=== PATIENT | female | born 1990 | race Hispanic/Latino ===

== ENCOUNTER 2018-11-10 01:49 | Emergency (ER) | payer SELFPAY ==
[2018-11-10] MEDS ORDERED: ONDANSETRON 4 MG/2 ML VIAL ONE ×2 (02:52→05:53)
[2018-11-10 03:08] LABS: Absolute Monocytes 0.9 K/uL (0.1-1.3); Absolute Neutrophil 16.6 K/uL (1.8-8.0); Basophils % 0.2 % (0-1.3); Eosinophils % 0.5 % (0-4.4); Lymphocytes % 10.3 % (15.3-44.8); MPV 9.4 fL (7.6-11.3); Monocytes % 4.6 % (3.3-12.3); RBC Red Blood Cell Count 5.09 M/uL (3.86-4.86)
[2018-11-10 03:29] LABS: Bilirubin Direct 0.1 mg/dL (0-0.2); Bilirubin Total 0.5 mg/dL (0.2-1.0); Potassium 3.5 mmol/L (3.5-5.1); Protein, Total 8.3 g/dL (6.4-8.2)
[2018-11-10] MEDS ORDERED: NA CHLORIDE 0.9% 1,000 ML ONE (03:35)
[2018-11-10] MEDS ORDERED: MEPERIDINE HCL 50 MG/ML AMP ONE (03:35)
--- NOTE | 2018-11-10 05:00 | EDPHYS ---
Physician Documentation [facility] Name: Zoie Myers Age: 27 yrs Sex: Female : 1990 Arrival Date: 11/10/2018 Time: 01:51 Bed 20 Private MD: ED Physician Carlos Toure HPI: 11/10 02:36 This 27 yrs old Female presents to ER via Ambulatory with complaints of pkl Breathing Difficulty, numbness of foot. 02:37 The patient presents with abdominal pain in the epigastric area. Onset: The pkl symptoms/episode began/occurred just prior to arrival, 3 hour(s) ago. The symptoms do not radiate. Associated signs and symptoms: Pertinent positives: hyperventilating and numbness right arm. 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 - Social history:: Smoking status: unknown. - Ebola Screening: : No symptoms or risks identified at this time. ROS: 02:37 Eyes: Negative for injury, pain, redness, and discharge, ENT: Negative for injury, pkl pain, and discharge, Neck: Negative for injury, pain, and swelling, Cardiovascular: Negative for chest pain, palpitations, and edema, Respiratory: Negative for shortness of breath, cough, wheezing, and pleuritic chest pain. 02:37 Abdomen/GI: Positive for abdominal pain, nausea and vomiting, of the epigastric area. 02:37 Back: Negative for acute changes. 02:37 : Negative for urinary symptoms. 02:37 MS/extremity: Negative for acute changes. 02:37 Skin: Negative for rash. 02:37 Neuro: Negative for altered mental status. Exam: 02:37 Head/Face: Normocephalic, atraumatic. Eyes: Pupils equal round and reactive to light, pkl extra-ocular motions intact. Lids and lashes normal. Conjunctiva and sclera are non-icteric and not injected. Cornea within normal limits. Periorbital areas with no swelling, redness, or edema. ENT: Nares patent. No nasal discharge, no septal abnormalities noted. Tympanic membranes are normal and external auditory canals are clear. Oropharynx with no redness, swelling, or masses, exudates, or evidence of obstruction, uvula midline. Mucous membranes moist. Neck: Trachea midline, no thyromegaly or masses palpated, and no cervical lymphadenopathy. Supple, full range of motion without nuchal rigidity, or vertebral point tenderness. No Meningismus. Chest/axilla: Normal chest wall appearance and motion. Nontender with no deformity. No lesions are appreciated. Cardiovascular: Regular rate and rhythm with a normal S1 and S2. No gallops, murmurs, or rubs. Normal PMI, no JVD. No pulse deficits. Respiratory: Lungs have equal breath sounds bilaterally, clear to auscultation and percussion. No rales, rhonchi or wheezes noted. No increased work of breathing, no retractions or nasal flaring. 02:37 Abdomen/GI: Bowel sounds: normal, Palpation: soft, mild abdominal tenderness, in the epigastric area. 02:37 Back: Exam negative for acute changes. 02:37 : Exam negative for acute changes. 02:37 Musculoskeletal/extremity: Exam is negative for acute changes. 02:37 Skin: Exam negative for rash. 02:37 Neuro: Orientation: is normal, Mentation: is normal, Cranial nerves: grossly normal, Motor: is normal. Vital Signs: 02:06 BP 110 / 85; Pulse 104; Resp 18 S; Temp 98(O); Pulse Ox 98% on R/A; Weight 89.81 kg bb (R); Height 5 ft. 3 in. (160.02 cm) (R); Pain 5/10; 03:25 BP 109 / 70; Pulse 107; Resp 20; Pulse Ox 99% on R/A; Pain 5/10; ed1 04:41 BP 109 / 64; Pulse 81; Resp 16; Pulse Ox 99% on R/A; Pain 0/10; ed1 05:33 BP 102 / 75; Pulse 100; Resp 18; Pulse Ox 100% on R/A; mt 02:06 Body Mass Index 35.07 (89.81 kg, 160.02 cm) bb MDM: 01:53 Patient medically screened. pkl 04:54 Data reviewed: vital signs, nurses notes, lab test result(s), radiologic studies, CT pkl scan. ED course: Discussed lab. and CT Scan results with patients. To follow with PCP in 1 to 2 days. Advised to return if symptoms are worse. 11/10 02:35 Order name: Basic Metabolic Panel; Complete Time: 04:49 pkl 11/10 02:35 Order name: CBC with Diff; Complete Time: 04:49 pkl 11/10 02:35 Order name: Creatinine for Radiology; Complete Time: 04:49 pkl 11/10 02:35 Order name: Hepatic Function; Complete Time: 04:49 pkl 11/10 02:35 Order name: Lipase; Complete Time: 04:49 pkl 11/10 02:53 Order name: Urine Dipstick--Ancillary (enter results); Complete Time: 06:20 mw2 11/10 02:35 Order name: IV Saline Lock; Complete Time: 02:45 pkl 11/10 02:47 Order name: CT Abd/Pelvis - W/Contrast pkl 11/10 02:53 Order name: Urine --Ancillary (enter results); Complete Time: 06:20 mw2 11/10 02:35 Order name: Labs collected and sent; Complete Time: 02:45 pkl 11/10 02:45 Order name: Urine Dipstick-Ancillary (obtain specimen); Complete Time: 02:45 bb 11/10 02:45 Order name: Urine Test (obtain specimen); Complete Time: 02:45 bb Administered Medications: 02:47 Drug: Zofran 4 mg Route: IVP; Site: right antecubital; ed1 03:15 Follow up: Response: No adverse reaction; Nausea is decreased ed1 03:25 Drug: NS 0.9% 1000 ml Route: IV; Rate: 1000 ml; Site: right antecubital; ed1 03:25 Drug: Demerol 50 mg Route: IVP; Site: right antecubital; ed1 04:41 Follow up: Response: No adverse reaction; Pain is decreased ed1 05:04 Drug: Cipro 400 mg Volume: 200 ml; Route: IVPB; Infused Over: 60 mins; Site: right jb4 antecubital; 06:04 Follow up: Response: No adverse reaction; IV Status: Completed infusion; IV Intake: jb4 200ml 05:40 Drug: Zofran 4 mg Route: IVP; Site: right antecubital; jb4 05:48 Follow up: Response: No adverse reaction; Nausea is decreased jb4 Disposition: 11/10/18 04:59 Discharged to Home. Impression: Abdominal pain.. Leukocytosis. Enteritis. - Condition is Stable. - Prescriptions for Zofran 4 mg Oral Tablet - take 1 tablet by ORAL route every 12 hours As needed; 6 tablet. Cipro 500 mg Oral Tablet - take 1 tablet by ORAL route every 12 hours for 7 days; 14 tablet. - Medication Reconciliation Form, Thank You Letter, Antibiotic Education, Prescription Opioid Use form. - Work release form (11/10/18 06:18). mt - Follow up: Private Physician; When: 1 - 2 days; Reason: Re-evaluation by your physician. - Problem is new. - Symptoms have improved. Signatures: Dispatcher [employer] EDMS Carlos Toure MD MD pkl Rosa Crum, RN RN bb Melita Osei RN RN ed1 Omar Matos RN RN jb4 Rhoda Burkett in Corrections: (The following items were deleted from the chart) 06:15 04:59 11/10/2018 04:59 Discharged to Home. Impression: Abdominal pain.. Leukocytosis. jb4 Enteritis. Condition is Stable. Forms are Medication Reconciliation Form, Thank You Letter, Antibiotic Education, Prescription Opioid Use. Follow up: Private Physician; When: 1 - 2 days; Reason: Re-evaluation by your physician. Problem is new. Symptoms have improved. pkl
--- NOTE | 2018-11-10 05:00 | ER ---
Nurse's Notes [facility] Name: Zoie Myers Age: 27 yrs Sex: Female : 1990 Arrival Date: 11/10/2018 Time: 01:51 Bed 20 Private MD: Diagnosis: Abdominal pain.. Leukocytosis. Enteritis Presentation: 11/10 02:05 Presenting complaint: Patient states: she woke up with a stomach ache, vomiting, then bb she started to hyperventilate and now she has right arm numbness. Transition of care: patient was not received from another setting of care. Onset of symptoms was November 10, 2018. Risk Assessment: Do you want to hurt yourself or someone else? Patient reports no desire to harm self or others. Initial Sepsis Screen: Does the patient meet any 2 criteria? No. Patient's initial sepsis screen is negative. Does the patient have a suspected source of infection? No. Patient's initial sepsis screen is negative. Care prior to arrival: None. 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 - Social history:: Smoking status: unknown. - Ebola Screening: : No symptoms or risks identified at this time. Screenin:26 Abuse screen: Denies threats or abuse. Nutritional screening: No deficits noted. bb Tuberculosis screening: No symptoms or risk factors identified. Fall Risk None identified. Assessment: 02:27 Reassessment: pt actively vomiting Dr Toure notified. bb 02:30 General: Appears uncomfortable, Behavior is calm, cooperative. Pain: Complains of pain ed1 in abdomen Pain does not radiate. Pain currently is 5 out of 10 on a pain scale. Quality of pain is described as aching. Neuro: Level of Consciousness is awake, alert, obeys commands, Oriented to person, place, time, situation. Cardiovascular: Denies chest pain, Heart tones S1 S2 present Rhythm is regular. Respiratory: Airway is patent Respiratory effort is even, unlabored, Respiratory pattern is regular, symmetrical, Breath sounds are clear bilaterally. GI: Abdomen is non-distended, Bowel sounds present X 4 quads. Abd is soft and non tender X 4 quads. Reports nausea, vomiting, Patient currently denies diarrhea. : No signs and/or symptoms were reported regarding the genitourinary system. EENT: Oral mucosa is moist. Derm: Skin is pink, warm \T\ dry. Musculoskeletal: Circulation, motion, and sensation intact. Range of motion: intact in all extremities. 03:25 GI: Patient currently denies nausea. ed1 03:28 Reassessment: Patient appears in no apparent distress at this time. Patient and/or ed1 family updated on plan of care and expected duration. Pain level reassessed. Patient is alert, oriented x 3, equal unlabored respirations, skin warm/dry/pink. Patient states feeling better. Patient states symptoms have improved. 04:41 Reassessment: Patient appears in no apparent distress at this time. Patient and/or ed1 family updated on plan of care and expected duration. Pain level reassessed. Patient is alert, oriented x 3, equal unlabored respirations, skin warm/dry/pink. Patient states feeling better. Patient states symptoms have improved. 05:35 Reassessment: Patient appears in no apparent distress at this time. Patient and/or jb4 family updated on plan of care and expected duration. Pain level reassessed. Patient is alert, oriented x 3, equal unlabored respirations, skin warm/dry/pink. Pt reporting increased nausea, provider notified see [facility] for orders. 06:00 Reassessment: Patient appears in no apparent distress at this time. Patient and/or jb4 family updated on plan of care and expected duration. Pain level reassessed. Patient is alert, oriented x 3, equal unlabored respirations, skin warm/dry/pink. Patient states feeling better. Vital Signs: 02:06 BP 110 / 85; Pulse 104; Resp 18 S; Temp 98(O); Pulse Ox 98% on R/A; Weight 89.81 kg bb (R); Height 5 ft. 3 in. (160.02 cm) (R); Pain 5/10; 03:25 BP 109 / 70; Pulse 107; Resp 20; Pulse Ox 99% on R/A; Pain 5/10; ed1 04:41 BP 109 / 64; Pulse 81; Resp 16; Pulse Ox 99% on R/A; Pain 0/10; ed1 05:33 BP 102 / 75; Pulse 100; Resp 18; Pulse Ox 100% on R/A; mt 02:06 Body Mass Index 35.07 (89.81 kg, 160.02 cm) bb ED Course: 01:51 Patient arrived in ED. es 01:53 Carlos Toure MD is Attending Physician. pkl 02:06 Triage completed. bb 02:06 Arm band placed on Patient placed in an exam room, on a stretcher. bb 02:08 Melita Osei, RN is Primary Nurse. ed1 02:25 Urine collected: clean catch specimen. Inserted saline lock: 20 gauge in right bb antecubital area, using aseptic technique. Blood collected. 02:26 Patient has correct armband on for positive identification. Placed in gown. Bed in low bb position. Call light in reach. Side rails up X 1. Adult w/ patient. Pulse ox on. NIBP on. 02:45 Initial lab(s) drawn, by me, sent to lab. bb 03:23 Radiology exam delayed due to lab results not completed at this time. (BUN/Creatinine) kw1 test not completed at this time. 03:[address] Scan. ed1 04:16 CT Abd/Pelvis - W/Contrast In Process Unspecified. EDMS 04:42 Primary Nurse role handed off by Melita Osei, RN ed1 04:56 Omar Matos, RN is Primary Nurse. jb4 06:13 No provider procedures requiring assistance completed. IV discontinued, intact, jb4 bleeding controlled, No redness/swelling at site. Administered Medications: 02:47 Drug: Zofran 4 mg Route: IVP; Site: right antecubital; ed1 03:15 Follow up: Response: No adverse reaction; Nausea is decreased ed1 03:25 Drug: NS 0.9% 1000 ml Route: IV; Rate: 1000 ml; Site: right antecubital; ed1 03:25 Drug: Demerol 50 mg Route: IVP; Site: right antecubital; ed1 04:41 Follow up: Response: No adverse reaction; Pain is decreased ed1 05:04 Drug: Cipro 400 mg Volume: 200 ml; Route: IVPB; Infused Over: 60 mins; Site: right jb4 antecubital; 06:04 Follow up: Response: No adverse reaction; IV Status: Completed infusion; IV Intake: jb4 200ml 05:40 Drug: Zofran 4 mg Route: IVP; Site: right antecubital; jb4 05:48 Follow up: Response: No adverse reaction; Nausea is decreased jb4 Intake: 06:04 IV: 200ml; Total: 200ml. jb4 Outcome: 04:59 Discharge ordered by . alisia 06:13 Discharged to home ambulatory, with family. jb4 06:13 Condition: stable 06:13 Discharge instructions given to patient, friend, Instructed on discharge instructions, follow up and referral plans. medication usage, Demonstrated understanding of instructions, follow-up care, medications, Prescriptions given X 2. 06:15 Patient left the ED. jb4 Signatures: Dispatcher [employer] EDMS Carlos Toure MD MD pkl Salyer, Edna es Ballard, Brenda RN RN Melita Alcazar RN RN ed1 Omar Matos RN RN jb4 Thompson, Moriah mt Wilhelm, Kimberly kw1 Corrections: (The following items were deleted from the chart) 03:28 03:25 GI: Patient currently denies nausea, ed1 ed1
[2018-11-10 05:12] LABS: Urine Blood NEGATIVE (NEG); Urine Glucose NEGATIVE (NEG); Urine Protein 1+ (NEG)
[2018-11-10] MEDS ORDERED: CIPROFLOXACIN 400mg IV 400 MG/200 ML BAG IV ONE (05:15)
[2018-11-10 06:25] VITALS: TEMP 98
[2018-11-10 06:30] VITALS: BP 102/75; O2SAT 100
--- NOTE | 2018-11-10 10:36 | RAD REPORT ---
EXAM DESCRIPTION: CT ABDOMEN AND PELVIS WITH CONTRAST CLINICAL HISTORY: Abdominal pain. COMPARISON: None. TECHNIQUE: Axial [address] imaging of the abdomen and pelvis performed utilizing intravenous contrast. Reformatted coronal and sagittal images reviewed. A dose reduction technique was utilized with automated exposure control according to patient size. FINDINGS: LOWER THORAX: Clear lung bases. Heart is normal in size. ABDOMEN: LIVER/GALLBLADDER: Unremarkable liver. Normal gallbladder. SPLEEN/PANCREAS: Normal spleen and pancreas. KIDNEYS/ADRENAL GLANDS: Normal adrenal glands and kidneys. RETROPERITONEAL VESSELS/NODES: Normal aorta and inferior vena cava caliber. No adenopathy. Mesenteri c vessels are normal. BOWEL: Normal stomach and small bowel loops. Normal right lower quadrant appendix. Fluid noted throu ghout the colon. MESENTERY/PERITONEUM: Nonenlarged mesenteric lymph nodes. No ascites or free air. PELVIS: BLADDER: Normal bladder. GENITAL ORGANS: Uterus is retroverted. Uterus is otherwise normal. Normal follicular changes within the ovaries. PERITONEUM: No free fluid or adenopathy. BONES AND SOFT TISSUES: Normal lumbar lordosis. Superior endplate Schmorl's node at L3. Intact bony pelvis. Normal hips. IMPRESSION: 1. Diffuse colonic fluid compatible with enteritis. Electronically signed by: Kinsey De Dios DO 11/10/2018 4:41 AM CDT Due to temporary technical issues with the PACS/Fluency reporting system, reports are being signed by the in house radiologist as a courtesy to ensure prompt reporting. The interpreting radiologist is f ully responsible for the content of the report.
== END 2018-11-10 06:15 | disposition home or self-care (01) ==
LOC: ER 01:49
DX: K52.9 Noninfective gastroenteritis and colitis, unspecified (principal); D72.829 Elevated white blood cell count, unspecified
CPT/HCPCS: 36415; 74177; 80048; 80076; 81003; 81025; 83690; 85025; 96365; 96375; 99284; J0744; J2175; J2405; J7030; Q9967

== ENCOUNTER 2019-10-06 11:33 | Emergency (ER) | payer SELFPAY, OTHER ==
--- OUTSIDE RECORDS SUMMARY | 2019-10-06 12:02 | XMS REPORT | Summary of Care ---
:1990 Author Organization [facility] Address [address] [place] [id number] Care Team Providers Name Role Phone Angella Lyman [facility] Primary Care Provider Reason for Visit Reason Comments Well Woman Exam CONTROL Encounter Details Date Type Department Care Team Description [facility] Wel l woman exam (Primary Dx); [facility] Encounter for general counseling and adv ice on contraceptive management; [address] BMI 36.0-36.9,adult; [place], [place] Screen for STD (sexually transmitted dis ease); [id number] [place] [address] History of gonorrhea [phone] Allergies No Known Allergiesdocumented as of this encounter (statuses as of 01/14/2019) Medications Medication Sig Dispensed Refills Start Date End Date Status Take 1 tablet 90 tablet 3 01/16/2016 01/14/2019 Disc ontinued multivitamin by mouth ( VITAMIN) daily. tabletIndications: High risk , antepartum HYDROcodone-acetami Take 1 tablet 30 tablet 0 08/24/201601/14 Discontinued nophen (NORCO) by mouth 10-325 mg tablet every 6 (six) hours as needed for Pain (scale 1-3), Pain (scale 4-6) or Pain (scale 7-10). naproxen 500 mg Take 1 tablet 60 tablet 1 08/24/2016 9 Discontinued tablet by mouth 2 (two) times daily with meals. documented as of this encounter (statuses as of 01/14/2019) Active Problems Problem Noted Date Gonococcal infection (acute) of lower genitourinary tr act 05/29/2018 BMI 35.0-35.9,adult 02/06/2018 Fibrocystic breast changes, bilateral 02/06/2018 documented as of this encounter (statuses as of 01/14/2019) Resolved Problems Problem Noted Date Resolved Date Status post primary low transverse section 08/27/19 17 02/06/2018 Liveborn by 08/24/2016 02/06/2018 Obesity affecting 08/24/2016 02/06/2018 Failed induction of labor, delivered 08/24/2016 Nuchal cord, delivered, current hospitalization 08/24/2016 02/06/2018 39 weeks gestation of 08/23/2016 02/07/20 18 Low-lying placenta in second trimester 04/10/2016 0 02/06/2018 Rubella non-immune status, antepartum 02/15/2016 High risk , antepartum 01/16/2016 02/07/20 18 Obesity complicating in first trimester 01/16/2016 02/06/2018 Heartburn during in first trimester 01/16/2016 02/06/2018 BCP ( control pills) initiation 07/20/201501/2016 Encounter for routine gynecological examination 09/29/2013 07/20/2015 Overview: ICD10 Diagnosis Term [employer] General counseling and advice for contraceptive management 0 09/29/2013 07/20/2015 Overview: ICD10 Diagnosis Term [employer] Obesity 08/21/2012 01/16/2016 Overview: ICD10 Diagnosis Term [employer] STD (female) 08/21/2012 09/29/2013 Overview: History of chlamydia Other inflammatory disease of cervix, vagina and vulva 07/3108/21/2012 Overview: Mass to mabia minora documented as of this encounter (statuses as of 01/14/2019) Immunizations Name Administration Dates Next Due Influenza Virus Vaccine Quad IM 3+ YRS 03/13/2016 MMR 08/25/2016 Td 2005 Tdap 07/09/2016 documented as of this encounter Social History Tobacco Use Types Packs/Day Years Used Date Never Smoker Smokeless Tobacco: Never Used Alcohol Use Drinks/Week oz/Week Comments Yes 0 Standard drinks or equivalent 0.0 socially- every other weekend Sex Assigned at Date Recorded Not on file Job Start Date Occupation Industry Not on file Not on file Not on file Travel History Travel Start Travel End No recent travel history available. documented as of this encounter Last Filed Vital Signs Vital Sign Reading Time Taken Comments Blood Pressure 127/89 01/14/2019 1:21 PM CDT Pulse 107 01/14/2019 1:21 PM CDT Temperature 36.8 C (98.2 F) 01/14/2019 1:21 PM CDT Respiratory Rate 16 01/14/2019 1:21 PM CDT Oxygen Saturation - - Inhaled Oxygen Concentration - - Weight 93.5 kg (206 lb 2 oz) 01/14/2019 1:21 PM CDT Height 160 cm (5' 3") 01/14/2019 1:21 PM CDT Body Mass Index 36.51 01/14/2019 1:21 PM CDT documented in this encounter Patient Instructions Patient InstructionsAngella Lyman, DEBRA - 01/14/2019 1:15 PM CDT Control Methods control methods are used to help prevent .There are many different methods to choose from. Talk to your healthcare provider about which method is right for you.Be sure to ask your provider about the effectiveness of each method. Also ask about the benefits, risks, and side effects of each method. Hormones Some control methods work by releasing hormones such as progestin and estrogen. These methods include hormone implants, hormone shots, the vaginal ring, the patch,and control pills. They all work by stopping ovulation (release of the egg from the ovary). The implant is a small device that needs to be placed in the upper arm by a trained healthcare provider. It works for up to3 years.Hormone injections must be repeated every 3 months.The vaginal ring must be replaced monthly (it can be removed during the fourth week of each cycle). The patch must be replaced weekly (it is not worn during the fourth week of each cycle). control pills must be taken every day. All of these met hods are effective and can be stopped at any time. Intrauterine device (IUD) An IUD is a small, T-shaped device. It must be placed in the uterus by a trained healthcare provider.There are different types of IUDs available. They work by causing changes in the uterus that make it harder for sperm to reach the egg. Depending on the type of IUD you have, it may work for several years or longer. The IUD is a reversible control method. This means it can be removed at any time. Condom A condom is a sheath that forms a thin barrier between the penis and the vagina.It helps prevent by keeping sperm from entering the vagina. When latex condoms are used, they have the added benefit of protecting against most STIs (sexually transmitted infections).Condoms are used each time there is sexual intercourse and should be discarded after each use. Ask your healthcare provider about the different types of condoms available. These include both the male condom and female condom. Spermicide Spermicides come as foams, jellies, creams, suppositories, andtablets.They help prevent by killing sperm. When used alone they are not that reliable. They work best when combined with other control methods such as diaphragms and cervical caps. Sponge, diaphragm, and cervical cap All of these methods help prevent by covering the opening of the uterus (cervix). This prevents sperm from passing through. The sponge contains spermicide. It can be bought over the counter. The sponge must be left in place for at least 6 hours after the last time you have sex.However, it should not stay in place for morethan 24 hours. It should be discarded after it is used. Thediaphragmand cervical cap must be fitted and prescribed by your healthcare provider. Both areused with spermicide.The diaphragm must be left in place for at least 6 hours after sex. However, it should not stay in place for more than 24 hours.It can be washed and reused. The cervical cap must be left in place for at least 6 hours after sex. However, it should not stay in place for more than 48 hours. It can be washed and reused. Withdrawal method This is when the man pulls his penis out of the vagina just before ejaculation (coming). This lowers the amount of sperm entering the vagina. Be aware that fluids released just before ejaculationoften still contain some sperm, so this method is not as reliable as certain other methods. Rhythm method This method requires that you know when in your menstrual cycle you are likely to become . Then, you avoid sex during those days. This requires careful planning and good discipline. Your healthcare provider can explain more about how this works. Tubal ligation and vasectomy These are surgical methods to prevent . Tubal ligation is an option for women. The fallopian tubes are blocked or cut (ligated). This keeps the egg from passing into the uterus or sperm from reaching the egg. Vasectomy is an option for men. The tubes that normally carry sperm to the penis areeither closed or blocked. Both tubal ligation and vasectomy are permanent control methods. This means reversal is either not possible or unlikely to work.They are good choices for women and menwho know that they do not want to have children in the future. Date Last Reviewed: 04/10/201719994342-7317 [employer]. [address] [place] [address]. All rights reserved. This information is not intended as a substitute for professional medical care. Always follow your healthcare professional's instructions. Control: The Pill control pills contain hormones that help prevent . The pills are prescribed by your healthcare provider. There are many types of control pills available. If you have side effects from one type of pill, tell your healthcare provider. He or she may be able to prescribe a pill that works better for you. rates Talk to your healthcare provider about the effectiveness of this control method. Using the pill Take one pill daily. Take it at around the same time each day. Follow your healthcare providers guidelines on when to start your first pack of pills. You mayneed to use another form of control for a week or more after you start. Know what to do if you forget to take a pill. (Consult your healthcare provider or check the package.) If you miss more than one pill, you may need to use a backup method of control for a weekor more. Pros Low rate No interruption to sex Easy to use Can help make periods more regular May lower your risk of ovarian cysts and certain cancers May decrease menstrual cramps, menstrual flow, and acne Cons Does not protect against sexually transmittedinfection (STIs) Requires taking a pill on time each day May not work as well when taken with certain other medicines (check with your pharmacist) May cause side effects such as nausea, irregular bleeding, headaches, breast tenderness, fatigue,or mood changes (these often go away within 3 months) May increase the risk of blood clots,heart attack, and stroke The pill may not be for you The pill may not be for you if: You are a smoker and over age 35 You havehigh blood pressureor gallbladder, liver, cerebrovascular or heart disease You have diabetes, migraines, blood clot in the vein or artery, lupus, depression, certain lipid disorders, or take medicines that interfere with the pill In these cases, discuss the risks with your healthcare provider. Date Last Reviewed: 08/08/201619994577-2462 [employer]. [address] [place] [address]. All rights reserved. This information is not intended as a substitute for professional medical care. Always follow your healthcare professional's instructions. Medroxyprogesterone injection [Contraceptive] Brand Names: Depo-Provera, Depo-subQ Provera 104 What is this medicine? MEDROXYPROGESTERONE (me DROX ee proe SUNITHA te jessie) contraceptive injections prevent . They provide effective control for 3 months. Depo-subQ Provera 104 is also used for treating pain related to endometriosis. How should I use this medicine? Depo-Provera Contraceptive injection is given into a muscle. Depo-subQ Provera 104 injection is given under the skin. These injections are given by a health managed care coordinator. You must not be before getting an injection. The injection is usually given during the first 5 days after the start of a menstrual period or 6 weeks after delivery of a baby. Talk to your smalltalk developer regarding the use of this medicine in children. Special care may be needed. These injections have been used in female children who have started having menstrual periods. What side effects may I notice from receiving this medicine? Side effects that you should report to your doctor or health managed care coordinator as soon as possible: allergic reactions like skin rash, itching or hives, swelling of the face, lips, or tongue breast tenderness or discharge breathing problems changes in vision depression feeling faint or lightheaded, falls fever pain in the abdomen, chest, groin, or leg problems with balance, talking, walking unusually weak or tired yellowing of the eyes or skin Side effects that usually do not require medical attention (report to your doctor or health managed care coordinator if they continue or are bothersome): acne fluid retention and swelling headache irregular periods, spotting, or absent periods temporary pain, itching, or skin reaction at site where injected weight gain What may interact with this medicine? Do not take this medicine with any of the following medications: bosentan This medicine may also interact with the following medications: aminoglutethimide antibiotics or medicines for infections, especially rifampin, rifabutin, rifapentine, and griseofulvin aprepitant barbiturate medicines such as phenobarbital or primidone bexarotene carbamazepine medicines for seizures like ethotoin, felbamate, oxcarbazepine, phenytoin, topiramate modafinil [place]'s wort What if I miss a dose? Try not to miss a dose. You must get an injection once every 3 months to maintain control. If you cannot keep an appointment, call and reschedule it. If you wait longer than 13 weeks between Depo-Provera contraceptive injections or longer than 14 weeks between Depo-subQ Provera 104 injections, you could get . Use another method for control if you miss your appointment. You may also need a test before receiving another injection. Where should I keep my medicine? This does not apply. The injection will be given to you by a health managed care coordinator. What should I tell my health care provider before I take this medicine? They need to know if you have any of these conditions: frequently drink alcohol asthma blood vessel disease or a history of a blood clot in the lungs or legs bone disease such as osteoporosis breast cancer diabetes eating disorder (anorexia nervosa or bulimia) high blood pressure HIV infection or AIDS kidney disease liver disease mental depression migraine seizures (convulsions) stroke tobacco smoker vaginal bleeding an unusual or allergic reaction to medroxyprogesterone, other hormones, medicines, foods, dyes, or preservatives or trying to get breast-feeding What should I watch for while using this medicine? This drug does not protect you against HIV infection (AIDS) or other sexually transmitted diseases. Use of this product may cause you to lose calcium from your bones. Loss of calcium may cause weak bones (osteoporosis). Only use this product for more than 2 years if other forms of control are not right for you. The longer you use this product for control the more likely you will be at risk for weak bones. Ask your health managed care coordinator how you can keep strong bones. You may have a change in bleeding pattern or irregular periods. Many females stop having periods while taking this drug. If you have received your injections on time, your chance of being is very low. If you think you may be , see your health managed care coordinator as soon as possible. Tell your health managed care coordinator if you want to get within the next year. The effect of this medicine may last a long time after you get your last injection. NOTE:This sheet is a summary. It may not cover all possible information. If you have questions aboutthis medicine, talk to your doctor, pharmacist, or health care provider. Copyright 2018 [employer] Understanding STDs When it comes to sex, nothing is risk-free. Any sexual contact with the penis, vagina, anus, or mouth can spread a sexually transmitted disease (STD). The only sure way to prevent STDs is abstinence (not having sex). But there are ways to make sex safer. Use a latex condom each time you have sex. And choose your partner wisely. Use condoms for safer sex If you have sex, latex condoms provide the best protection against STDs. Latex condoms stop the exchange of body fluids that carry certain STDs. They also limit contact with affected skin. Be aware though, a condom doesnt cover all skin. So, affected skin that is not covered can still transfer disease. But youre safer with a condom than without one. Use a condom even if you use other control. While control methods like the pill or IUD help prevent , they do not protect against STDs. Choose the right condom Condoms made of latex prevent disease best. If youre allergic to latex, use polyurethane condoms instead. Male condoms fit over the penis. Female condoms line the vagina. Before buying a condom, read the label to be sure it prevents disease. Some novelty condoms dont. The right lubricant helps Buy lubricated condoms or use lubricant. This provides greater comfort and reduces the risk of condom breakage. Use only water-based lubricants. Dont use oil, lotion, or petroleum jelly. They can weaken the condom, causing breakage. Also, you may want to choose lubricants without nonoxynol-9. Its now known that this spermicide does not prevent disease and may cause irritation. Use condoms correctly For condoms to work, they must be used the right way. Keep these tips in mind: Use a new latex condom each time you have sex. Slip the condom on the penis before any contact ismade. When ready to withdraw, hold the rim of the condom as the penis pulls out. This prevents the condom from slipping off. Check the expiration date before using a condom. Dont store condoms in places that can get hot, such as a car or a wallet that is carried in a back pocket. Get to know your partner Safer sex is a process. It involves getting to know your partner and making informed choices. Ask each other how many partners you have had in the past, and how many you have now. Find out if either ofyou has an STD. If you decide to have sex, use a condom each time. Dont stop using condoms unlessyoure sure neither of you has other partners and youve both been tested to confirm you donthave STDs. Then stay free of disease by having sex only with each other (monogamy). Keep your cool Dont let alcohol or drugs cloud your judgment. They could lead you to have sex with someone you wouldnt have chosen if you were sober. Or, you might forget to use a condom. If you do plan to havesex, keep a latex condom with you. Dont wait until youre in the heat of passion to try to findone. Consider abstinence The only way to be sure you wont get an STD is to abstain from sex. Abstinence is a choice that many people make at some point in their lives. Maybe you want to wait until you are sure youre ready before you have sex. Maybe youd like a break from the responsibilities of sex for a while. Or maybe you just want to know your partner better before taking the next step. Abstinence is a choice youcan make now to protect your future. Date Last Reviewed: 05/10/201619993035-0693 [employer]. [address] [place] [address], [place] [address]. All rights reserved. This information is not intended as a substitute for professional medical care. Always follow your healthcare professional's instructions. Prevention Guidelines,Women Ages 18 to 39 Screening tests and vaccines are an important part of managing your health. A screening test is doneto find possible disorders or diseases in people who don't have any symptoms. The goal is to find a disease early so lifestyle changes can be made and you can be watched more closely to reduce the riskof disease, or to detect it early enough to treat it most effectively. Screening tests are not considered diagnostic, but are used to determine if more testing is needed. Health counseling is essential, too. Below are guidelines for these, for women ages 18 to 39. Talk with your healthcare provider tomake sure youre up-to-date on what you need. Screening Who needs it How often Alcohol misuse All women in this age group At routine exams Blood pressure All women in this age group Yearly checkup if your blood pressure is normal Normal blood pressure is less than 120/80 mm Hg If your blood pressure reading is higher than normal, follow the advice of your healthcare provider Breast cancer All women in this age group should talk with their healthcare providers about the needfor clinical breast exams (CBE)1 Clinical breast exam every 3 years1 Cervical cancer Women ages 21 and older Women between ages 21 and 29 should have a Pap test every 3 years; women between ages 30 and 65 are advised to have a Pap test plus an HPV test every 5 years Chlamydia Sexually active women ages 25 and younger, and women at increased risk for infection (suchas having multiple sex partners) Every year if you're at risk or have symptoms Depression All women in this age group At routine exams Type 2 diabetes, prediabetes All women with no symptoms who are overweight or obese and have 1 or more other risk factors for diabetes At least every 3 years. Also, testing for diabetes during after the 24th week. Type 2 diabetes, prediabetes All women diagnosed with gestational diabetes Lifelong testing every 3 years Type 2 diabetes All women with prediabetes Every year Gonorrhea Sexually active women at increased risk for infection At routine exams Hepatitis C Anyone at increased risk At routine exams HIV All women should be tested at least once for HIV between the ages of 13 and 64 At routine exams.Those with risk factors for HIV should be tested at least annually. Obesity All women in this age group At routine exams Syphilis Women at increased risk for infection should talk with their healthcare provider At routineexams Tuberculosis Women at increased risk for infection should talk with their healthcare provider Ask your healthcare provider [employer] All women in this age group At least 1 complete exam in your 20s, and 2 in your 30s Vaccine2 Who needs it How often Chickenpox (varicella) All women in this age group who have no record of this infection or vaccine 2doses; the second dose should be given 4 to 8 weeks after the first dose Hepatitis A Women at increased risk for infection should talk with their healthcare provider 2 dosesgiven at least 6 months apart Hepatitis B Women at increased risk for infection should talk with their healthcare provider 3 dosesover 6 months; second dose should be given 1 month after the first dose; the third dose should be given at least 2 months after the second dose and at least 4 months after the first dose Haemophilus influenzaeType B (HIB) Women at increased risk for infection should talk with their healthcare provider 1 to 3 doses Human papillomavirus (HPV) All women in this age group up to age 26 3 doses; the second dose should be given 1 to 2 months after the first dose and the third dose given 6 months after the first dose Influenza (flu) All women in this age group Once a year Measles, mumps, rubella (MMR) All women in this age group who have no record of these infections or vaccines 1 or 2 doses Meningococcal Women at increased risk for infection should talk with their healthcare provider 1 or more doses Pneumococcal conjugate vaccine (PCV13)and pneumococcal polysaccharidevaccine(PPSV23) Women at increased risk for infection should talk with their healthcare provider PCV13: 1 dose ages 19 to 65 (protects against 13 types of pneumococcal bacteria) PPSV23: 1 to2 doses through age 64, or 1 dose at 65 or older (protects against 23 types of pneumococcal bacteria) Tetanus/diphtheria/pertussis (Td/Tdap) booster All women in this age group Td every 10 years, or a one-time dose of Tdap instead of a Td booster after age 18, then Td every 10 years Counseling Who needs it How often BRCA gene mutation testing for breast and ovarian cancer susceptibility Women with increased risk for having gene mutation When your risk is known Breast cancer and chemoprevention Women at high risk for breast cancer When your risk is known Diet and exercise Women who are overweight or obese When diagnosed, and then at routine exams Domestic violence Women at the age in which they are able to have children At routine exams Sexually transmitted infection prevention Women who are sexually active At routine exams Skin cancer Prevention of skin cancer in fair-skinned adults At routine exams Use of tobacco and the health effects it can cause All women in this age group Every visit 1 According to the ACS, women ages 20 to 39 years should have a clinical breast exam (CBE) as part of their routine health exam every 3 years. Breast self-exams are an option for women starting in their 20s.But the USPSTF does not recommend CBE. Date Last Reviewed: 03/10/201719994099-7528 [employer]. [address] [place] [address], [place] [address]. All rights reserved. This information is not intended as a substitute for professional medical care. Always follow your healthcare professional's instructions. Understanding HIV and AIDS If you know how HIV (human immunodeficiency virus) can get into your body and what happens once its there, youll be better prepared to protect yourself or others against this virus. A person withHIV can look and feel perfectly healthy. But that person can give HIV to others as soon as he or sheis infected with the virus. Note: Having unsafe or unprotected sex or sharing needles put you at risk for HIV. Talk with your healthcare provider about ways to protect yourself or a loved one from getting HIV. How HIV enters the body HIV is carried in semen, vaginal fluid, blood, and breast milk. During sex, HIV can enter the body through the fragile tissue that lines the vagina, penis, anus,and mouth. During drug use, tattooing, or body piercing, the virus can enter the bloodstream through a shared needle. A mother who has HIV can infect her child during childbirth and through . How HIV infection progresses After HIV enters the body, it attacks the immune system in stages. A person with HIV can infect others once the virus enters the bloodstream. HIV with no symptoms. A person with HIV may have no symptoms for years. A positive blood test for HIV antibodies 6 weeks to 6 months after HIV enters the body may be the only sign of infection. HIV with symptoms.Some people develop an illness similar to mononucleosis (or "mono") 2 to 4 weeksafter the virus enters the body. Symptoms may include swollen lymph glands, chills, fever, night sweats, weakness, weight loss, skin rashes, mouth ulcers, or sore throat. Symptoms may be mild at first and then slowly go away. In a very few individuals, symptoms may get progressively worse and last forlonger and longer periods. AIDS. AIDS is the last stage of HIV infection. Diseases and cancers begin to overcome the body. It is these diseases, not the virus itself, that cause . HIV may also attack the brain and nervous system, causing seizures and loss of memory and body movement. Date Last Reviewed: 04/10/201619992280-4750 [employer]. [address] [place] [address]. All rights reserved. This information is not intended as a substitute for professional medical care. Always follow your healthcare professional's instructions. Clinical Breast Exam Many health organizations recommend a yearly clinical breast exam. This exam may be done by a muck farmer, family healthcare provider, nurse practitioner, nurse sports administrator, or specially trained nurse. Yearly breast exams help tomake surethat breast conditions are found early. Your healthcare providers role A healthcare professional knows the tests and follow-up care needed if a problem is found. Your clinical exam is also a great time to ask questions about breast self-exams. You can find out if yourechecking your breasts in the best way. Or you may want to ask how , breast implants, or breast reduction surgery affect the way you should check your breasts. Diagnostic tests If a clinical exam reveals a breast change, you may have other tests to find out more. These tests may include: Mammography. A low-dose X-ray of your breast tissue. Ultrasound. An imaging test that uses sound waves to create images of your breast. Biopsy. A small amount of breast tissue is removed by needle or by a cut (incision). The tissue is then checked under a microscope. Guidelines for having clinical breast exams The [place] [employer] recommends that starting at age 29, you should have a clinical breast exam every 1 to 3 years. After age 40, have a clinical breast exam each year. If youre at higher risk for breast cancer, you may need exams more often. Risk factors for breast cancer may include: Being over 50 or postmenopausal Having a family history of breast cancer Having the BRCA1 or BRCA2 gene mutation or certain other gene mutations Having more menstrual periods due to starting menstruation early(before age 12) or having a late menopause (after age 55) Having no pregnancies Having a first after age 30 Being obese Having a history of radiation treatment to your chest area Exposure to ARON during your mother's Not being active Drinking too much alcohol Having dense breast tissue Taking hormone therapy after menopause Other health organizations have different recommendations. Talk with your healthcare provider about what is best for you. Date Last Reviewed: 01/08/201719991474-4534 [employer]. [address] [place] [address]. All rights reserved. This information is not intended as a substitute for professional medical care. Always follow your healthcare professional's instructions. Breast Health: Breast Self-Awareness What is breast self-awareness? Breast self-awareness is knowing how your breasts normally look and feel. Your breasts change as yougo through different stages of your life. So its important to learn what is normal for your breasts. Breast self-awareness helps you notice any changes in your breasts right away. Report any changesto your healthcare provider. Why is breast self-awareness important? Many experts now say that women should focus on breast self-awareness instead of doing a breast self-examination (BSE). These experts include the [place] [employer], the U.S. Preventive Services Task Force, and the [place] [employer]. Some experts even advise not teaching women to do a BSE. Thats because research hasnt shown a clear benefit to doing BSEs. Breast self-awareness is different than a BSE. Breast self-awareness isnt about following a certain method and schedule. Its about knowing what's normal for your breasts. That way you can notice even small changes right away. If you see any changes, report them to your healthcare provider. Changes to look for Call your healthcare provider if you find any changes in your breasts that concern you. These changes may include: A lump Nipple discharge other than breastmilk, especially a bloody discharge Swelling A change in size or shape Skin irritation, such as redness, thickening, or dimpling of the skin Swollen lymph nodes in the armpit Nipple problems, such as pain or redness If you find a lump Contact your provider if you find lumpiness in one breast, feel something different in the tissue, or feel a definite lump. Sometimes lumpiness may be due to menstrual changes. But there may be reason for concern. Your provider may want to see you right away if you have: Nipple discharge that is bloody Skin changes on your breast, such as dimpling or puckering Its normal to be upset if you find a lump. But its important to contact your provider right away. Remember that most breast lumps are benign. This means they are not cancer. Date Last Reviewed: 01/08/201719990328-5774 [employer]. [address] [place] [address], [place] [address]. All rights reserved. This information is not intended as a substitute for professional medical care. Always follow your healthcare professional's instructions. Understanding USDA MyPlate The USDA (U.S. Department of Agriculture) has guidelines to help you make healthy food choices. These are called MyPlate. MyPlate shows the food groups that make up healthy meals using the image of a place setting. Before you eat, think about the healthiest choices for what to put onto your plate or into your cup or bowl. To learn more about building a healthy plate, visit www.choosemyplate.gov. The food groups Fruits. Any fruit or 100% fruit juice counts as part of the Fruit Group. Fruits may be fresh, canned, frozen, or dried, and may be whole, cut-up, or pureed. Make half your plate fruits and vegetables. Vegetables. Any vegetable or 100% vegetable juice counts as a member of the Vegetable Group. Vegetables may be fresh, frozen, canned, or dried. They can be served raw or cooked and may be whole, cut-up, or mashed. Make half your plate fruits and vegetables. Grains. All foods made from grains are part of the Grains Group. These include wheat, rice, oats,cornmeal, and barley such as bread, pasta, oatmeal, cereal, tortillas, and grits. Grains should be no more than a quarter of your plate. At least half of your grains should be whole grains. Protein. This group includes meat, poultry, seafood, beans and peas, eggs, processed soy products(like tofu), nuts (including nut butters), and seeds. Make protein choices no more than a quarter ofyour plate. Meat and poultry choices should be lean or low fat. Dairy. All fluid milk products and foods made from milk that contain calcium, like yogurt and cheese, are part of the Dairy Group. (Foods that have little calcium, such as cream, butter, and cream cheese, are not part of the group.) Most dairy choices should be low-fat or fat-free. Oils. These are fats that are liquid at room temperature. They include canola, corn, olive, soybean, and sunflower oil. Foods that are mainly oil include mayonnaise, certain salad dressings, and soft margarines. You should have only 5 to 7 teaspoons of oils a day. You probably already get this muchfrom the food you eat. Date Last Reviewed: 01/08/201719994780-9221 [employer]. [address] [place] [address], [place] [address]. All rights reserved. This information is not intended as a substitute for professional medical care. Always follow your healthcare professional's instructions. Eating Heart-Healthy Foods Eating has a big impact on your heart health. In fact, eating healthier can improve several of your heart risks at once. For instance, it helps you manage weight, cholesterol, and blood pressure. Here are ideas to help you make heart- healthy changes without giving up allthe foods and flavors you love. Getting started Talk with your healthcare provider about eating plans, such as the DASH or Mediterranean diet. You may also be referred to a dietitian. Change a few things at a time. Give yourself time to get used to a few eating changes before adding more. Work to create a tasty, healthy eating plan that you can stick to for the rest of your life. Goals for healthy eating Below are some tips to improve your eating habits: Limit saturated fats and trans fats. Saturated fats raise your levels of cholesterol, so keep these fats to a minimum. They are found in foods such as fatty meats, whole milk, cheese, and palm and coconut oils. Avoid trans fats because they lower good cholesterol as well as raise bad cholesterol. Trans fats are most often found in processed foods. Reduce sodium (salt) intake. Eating too much salt may increase your blood pressure. Limit your sodium intake to 2,300 milligrams (mg) per day(the amount in 1 teaspoon of salt), or less if your healthcare provider recommends it. Dining out less often and eating fewer processed foods are two great ways to decrease the amount of salt you consume. Managing calories. A calorie is a unit of energy. Your body silverman calories for fuel, but if you eat more calories than your body silverman, the extras are stored as fat. Your healthcare provider can help you create a diet plan to manage your calories. This will likely include eating healthier foods as well as exercising regularly. To help you track your progress, keep a diary to record what you eat and how often you exercise. Choose the right foods Aim to make these foods ruddy of your diet. If you have diabetes, you may have different recommendations than what is listed here: Fruits and vegetables provide plenty of nutrients without a lot of calories. At meals, fill half your plate with these foods. Split the other half of your plate between whole grains and lean protein. Whole grains are high in fiber and rich in vitamins and nutrients. Good choices include whole-wheat bread, pasta, and brown rice. Lean proteins give you nutrition with less fat. Good choices include fish, skinless chicken, and beans. Low-fat or nonfat dairy provides nutrients without a lot of fat. Try low-fat or nonfat milk, cheese, or yogurt. Healthy fats can be good for you in small amounts. These are unsaturated fats, such as olive oil,nuts, and fish. Try to have at least 2 servings per week of fatty fish, such as salmon, sardines, mackerel, rainbow trout, and albacore tuna. These contain omega-3 fatty acids, which are good for your heart. Flaxseed is another source of a heart-healthy fat. More on heart-healthy eating Read food labels Healthy eating starts at the grocery store. Be sure to pay attention to food labels on packaged foods. Look for products that are high in fiber and protein, and low in saturated fat, cholesterol, and sodium. Avoid products that contain trans fat. And pay close attention to serving size. For instance, if you plan to eat two servings, double all the numbers on the label. Prepare food right A kelly part of healthy cooking is cutting down on added fat and salt. Look on the internet for lower-fat, lower-sodium recipes. Also, try these tips: Remove fat from meat and skin from poultry before cooking. Skim fat from the surface of soups and sauces. Broil, boil, bake, steam, grill, and microwave food without added fats. Choose ingredients that spice up your food without adding calories, fat, or sodium. Try these items: horseradish, hot sauce, lemon, mustard, nonfat salad dressings, and vinegar. For salt-free herbs and spices, try basil, cilantro, cinnamon, pepper, and hawa. Date Last Reviewed: 03/10/201719997504-9221 [employer]. [address] [place] [address], [place] [address]. All rights reserved. This information is not intended as a substitute for professional medical care. Always follow your healthcare professional's instructions. documented in this encounter Progress Notes Angella Lyman, CLINICAL RECRUITER - 01/14/2019 1:15 PM CDT Chief complaint: Chief Complaint Patient presents with Well Woman Exam CONTROL HPI Here for Well Woman Exam and contraceptive management. Patient desires OCPs or depo for contraception. Reviewed risks/benefits/alternative contraceptive methods. Denies cramps, vaginal discharge, genital lesions, breast pain and vaginal pain. Desires STD testing. Pt reports no past or present history of physical, sexual, and emotional abuse. Rubella: equivocal 2015, MMR given 08/2016 VZV: immune 2015 BMI: Body mass index is 36.51 kg/m. Td: 2017 Pap Smear: 01/2018 NILM Gardasil: no, resources provided Mammogram:N/A Guaiac:N/A Colonoscopy:N/A Histories OB History Para Term AB Living 1 1 1 0 0 1 SAB TAB Ectopic Multiple Live Births 0 0 0 0 1 # Outcome Date GA Lbr Hipolito/2nd Weight Sex Delivery Anes PTL Lv 1 Term 08/24/16 39w0d 7 lb 3 oz (3.26 kg) M SEC EPI ALIRIO Comments: Maternal Age: 23 years old, G 1, P 1 Mother's Blood Type: O+ Baby's Blood Type: O+, AARON negative Maternal Serological Test: Negative Maternal Group B Strep Screening: Negative Complications: Maternal history of obesity, gastroesophag Past Medical History: Diagnosis Date Chlamydia 08/2012 treated-2014 Esophageal reflux nexium with great success Gonorrhea 05/2018 Treated 2018 Family History Problem Relation Age of Onset Hypertension Paternal Grandmother Arthritis Paternal Grandmother Heart Paternal Grandfather heart attack Heart Father Asthma Sister defects NoFHx Ovarian Cancer NoFHx Uterine Cancer NoFHx Breast Cancer NoFHx Colon Cancer NoFHx Depression NoFHx Genetic NoFHx Cancer NoFHx Diabetes NoFHx Mental retardation NoFHx Neurological NoFHx Osteoporosis NoFHx Psychiatry NoFHx High cholesterol NoFHx Family Status Relation Name Status PGMo (Not Specified) PGFa (Not Specified) Fa (Not Specified) Sis (Not Specified) NoFHx (Not Specified) Past Surgical History: Procedure Laterality Date SECTION N/A 08/24/2016 Surgeon: Wolf Guerin MD; Location: [facility] Location Social History Socioeconomic History Marital status: Single Spouse name: Not on file Number of children: 0 Years of education: Not on file Highest education level: Not on file Occupational History 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 Social Needs Financial resource strain: Not on file Food insecurity: Worry: Not on file Inability: Not on file Transportation needs: Medical: Not on file Non-medical: Not on file Tobacco Use Smoking status: Never Smoker Smokeless tobacco: Never Used Substance and Sexual Activity Alcohol use: Yes Alcohol/week: 0.0 oz Comment: socially- every other weekend Drug use: No Sexual activity: Yes Partners: Male control/protection: Condom Comment: last had sex: 01/12/2019 Lifestyle Physical activity: Days per week: Not on file Minutes per session: Not on file Stress: Not on file Relationships Social connections: Talks on phone: Not on file Gets together: Not on file Attends hoahaoism service: Not on file Active member of club or organization: Not on file Attends meetings of clubs or organizations: Not on file Relationship status: Not on file Intimate partner violence: Fear of current or ex partner: Not on file Emotionally abused: Not on file Physically abused: Not on file Forced sexual activity: Not on file Other Topics Concern Service Not Asked Blood Transfusions No Caffeine Concern Not Asked Occupational Exposure Not Asked Hobby Hazards Not Asked Sleep Concern Not Asked Stress Concern Not Asked Weight Concern Not Asked Special Diet Not Asked Back Care Not Asked Exercise Not Asked Bike Helmet Not Asked Seat Belt Not Asked Self-Exams Not Asked Social History Narrative No domestic violence or abuse. Pt lives alone and feels safe at home. Social History Substance and Sexual Activity Sexual Activity Yes Partners: Male control/protection: Condom Comment: last had sex: 01/12/2019 Labs I have reviewed the patient's labs. and Labs are pending. Radiology No new radiology. Allergies Zoie has No Known Allergies. Medications Zoie currently has no medications in their medication list. Review of Systems Constitutional: Negative. HENT: Negative. Eyes: Negative. Respiratory: Negative. Breasts: Negative. Cardiovascular: Negative. Gastrointestinal: Negative. Genitourinary: Negative. Musculoskeletal: Negative. Skin: Negative. Neurological: Negative. Psychiatric/Behavioral: Negative. Endocrine: Endocrine negative BP 127/89 (BP Location: Right arm, Patient Position: Sitting, BP CUFF SIZE: Adult Small) | Pulse 107 | Temp 36.8 C (98.2 F) (Oral) | Resp 16 | Ht 5' 3" (1.6 m) | Wt 206 lb 2 oz (93.5 kg) | BMI 36.51 kg/m Pregravid BMI: Could not be calculated Physical Exam Vitals reviewed. Constitutional: She is oriented to person, place, and time. She appears well- developed and well-nourished. Her body habitus is obese. Neck: No thyroid nodules and no thyromegaly palpated. Cardiovascular: Regular rate and rhythm. No murmur auscultated. Pulmonary/Chest: Breath sounds clear to auscultation. Normal inspiratory effort. Abdominal: Abdomen is soft. No mass palpated. No tenderness present. There is no hepatosplenomegaly. Neuro/Psychiatric: She has a normal mood and affect. She is oriented to person, place, and time. Skin: Skin normal. No lesion and no rash present. Tattoos present Assessment/Plan 1. Well woman exam Educated patient regarding self breast awareness. SBE monthly. Patient advised mammograms to begin at age 40 Encourage green leafy vegetables, lean meats and fruit in diet. Avoid fatty, fried, sugary foods. Increase H2O intake (1/2 body weight in ozs). Exercise 30 minutes daily x 7 days/week as tolerated. Follow up 1 year 2. Encounter for general counseling and advice on contraceptive management D/w pt at length various BCMs including OCPs, Patch, Depo Provera, vaginal rings, condoms, implants and iuds. We discussed the risk/benefits/side effects of each. After discussion, pt desires to proceed with OCPs. UPT negative today. Patient's last menstrual period was 12/26/2018. Last intercourse 2 days ago without condom. Pt instructed on abstinence x 2 weeks and RTC for 2nd UPT and OCP start. - POCT TEST 3. BMI 36.0-36.9,adult The patient is asked to make an attempt to improve diet and exercise patterns to aid in medical management of this problem. 4. Screen for STD (sexually transmitted disease) Reviewed safe sex practices - GC & CHLAMYDIA AMPLIFIED ASSAY 5. History of gonorrhea H/o gonorrhea in 05/2018 s/p treatment with rocephin and azithromycin. No AMAURI on file. - GC & CHLAMYDIA AMPLIFIED ASSAY Return to clinic in 2 weeks. Discussed treatment options. Reviewed patient instructions and provided printed copy. This visit did not involve counseling and coordination that comprised more than 50% of the visit time. Samantha Shine RN - 01/14/2019 1:15 PM CDT28 year old presents to the clinic for wwe. 1) Previous BCM: None 2) Desired BCM: Undecided 3) LMP: 12/26/2018 4) Last [place]: 01/12/2019 no condom 5) Last Pap: 02/06/2018 Results: Negative 6) Tdap: 2016 7) Gardasil: N/A 8) C/O: Patient denies any complaints 9) Patient denies history of physical, emotional, or sexual abuse. Patient states that she currently feels safe at home. SAMANTHA SHINE RN 01/14/2019 1:20 PM documented in this encounter Plan of Treatment Date Type Specialty Care Team Description 01/28/2019 Nurse Visit OB Satellites Visit, [facility] Nurse Name Type Priority Associated Diagnoses Date/Ti me GC & CHLAMYDIA LAB Routine Screen for STD (sexually 0 01/14/2019 1:52 PM CDT AMPLIFIED ASSAY transmitted dise ase) History of gonorrhea Health Maintenance Due Date Last Done Comments INFLUENZA VACCINE 02/08/2019 03/13/2016 HPV VACCINES (1 - Female 01/12/2020 Postpon ed from 11/16/2007 3-dose series) (Insurance / Fin ancial) PAP SMEAR 02/06/2021 02/06/2018, 12/09/2014 DTaP,Tdap,and Td Vaccines (3 07/09/2026 07/09/2016, - Td) 2005 PNEUMOCOCCAL 0-64 YEARS Aged Out No longe r eligible based COMBINED SERIES on patient's age to complete this to pic documented as of this encounter Procedures Procedure Name Priority Date/Time Associated Diagnosis Comme nts POCT Routine 01/14/2019 1:54 Encounter for general Results for this TEST PM CDT counseling and advice proced ure are in on contraceptive the results management section. documented in this encounter Results POCT TEST (01/14/2019 1:54 PM CDT) Pathologist Sig nature POCT PREG Negative On board controls acceptable Yes with C Line POCT PREG LOT # POCT PREG TEST DATE Specimen Urine - URINE, CLEAN CATCH documented in this encounter Visit Diagnoses Diagnosis Well woman exam - Primary Routine general medical examination at a health care facility Encounter for general counseling and adv ice on contraceptive management BMI 36.0-36.9,adult Body Mass Index 36.0-36.9, adult Screen for STD (sexually transmitted dis ease) Screening examination for venereal disea se History of gonorrhea Personal history of other infectious and parasitic disease documented in this encounter Insurance Payer Benefit Plan / Subscriber ID Effective Dates Phone Addre ss Type Group [facility] PLANNING [id number] 2018-Pres [place] [employer] PLANNING SAUL SAUL [phone] [facility] [id number] [place] [address] documented as of this encounter Advance Directives Type Date Recorded Patient Brazer Induction Explanati on Advance Directives and Living Will Power of Fine Arts Model Name Relationship Healthcare Agent Relationship Co mmunication Agnella Myers Sibling Primary healthcare agent [phone] [email or web address]
--- OUTSIDE RECORDS SUMMARY | 2019-10-06 12:02 | XMS REPORT | Summary of Care ---
:1990 Author Organization [facility] Address [address] [place] [address] Care Team Providers Name Role Phone Angella Lyman ENVIRONMENTAL PROTECTION GEOLOGIST Primary Care Provider Encounter Details Date Type Department Care Team Description 01/14/2019 Orders Only [facility] Doctor Unassigned, No [address] [facility] [place] [address] [address] [place] [address] Allergies No Known Allergiesdocumented as of this encounter (statuses as of 01/14/2019) Medications Medication Sig Dispensed Refills Start Date End Date Status multivitamin Take 1 tablet by 90 tablet 3 01/16/2016 Active ( VITAMIN) mouth daily. tabletIndications: High risk , antepartum HYDROcodone-acetaminoph Take 1 tablet by 30 tablet 0 7 Active en (NORCO) 10-325 mg mouth every 6 tablet (six) hours as needed for Pain (scale 1-3), Pain (scale 4-6) or Pain (scale 7-10). naproxen 500 mg tablet Take 1 tablet by 60 tablet 1 08/24/2016 Active mouth 2 (two) times daily with meals. [...] examination 09/29/2013 07/20/2015 Overview: ICD10 Diagnosis Term Tank Calibrator Utility General counseling and advice for contraceptive management 0 09/29/2013 07/20/2015 Overview: ICD10 Diagnosis Term Tank Calibrator Utility Obesity 08/21/2012 01/16/2016 Overview: ICD10 Diagnosis Term Tank Calibrator Utility STD (female) 08/21/2012 09/29/2013 Overview: History [...] of this encounter Last Filed Vital Signs Not on filedocumented in this encounter Plan of Treatment Date Type Specialty Care Team Description 01/14/2019 Office Visit [facility] Satellites Angella Lyman, ENVIRONMENTAL PROTECTION GEOLOGIST [address] [place], [place] [address] [phone] Health Maintenance Due Date Last Done Comments HPV VACCINES (1 - Female 11/16/2007 3-dose series) INFLUENZA VACCINE 02/08/2019 03/13/2016 PAP SMEAR 02/06/2021 02/06/2018, 12/09/2014 DTaP,Tdap,and Td Vaccines (3 07/09/2026 07/09/2016, - Td) 2005 PNEUMOCOCCAL 0-64 YEARS Aged Out No longe r eligible based COMBINED SERIES on patient's age to complete this to [facility] documented as of this encounter Procedures Procedure Name Priority Date/Time Associated Diagnosis Comme nts NO SHOW OR MISSED Routine 01/14/2019 1:08 PM APPOINTMENT POLICY CDT ACKNOWLEDGEMENT documented in this encounter Results Not on filedocumented in this encounter Insurance Payer Benefit Plan / Subscriber ID Effective Dates Phone Addre ss Type Group [employer] FAMILY FAMILY PLANNING [id number] 2018-Pres [place] Agency PLANNING SAUL SAUL [phone] ent [id number] [place] [address] documented as of this encounter Advance Directives Type Date Recorded Patient Library Media Specialist Explanati on Advance Directives and Living Will Power of Statement Clerks Supervisor Name Relationship Healthcare Agent Relationship Co mmunication Angella Myers Sibling Primary healthcare agent [phone] [email or web address]
--- OUTSIDE RECORDS SUMMARY | 2019-10-06 12:02 | XMS REPORT ---
:1990 Author Organization [facility] t Address [address] [place] [address] Care Team Providers Name Role Phone Unavailable Unavailable Unavailable Problems This patient has no known problems. Allergies, Adverse Reactions, Alerts This patient has no known allergies or adverse reactions. Medications This patient has no known medications.
--- OUTSIDE RECORDS SUMMARY | 2019-10-06 12:03 | XMS REPORT | Summary of Care ---
:1990 Author Organization [facility] Address [address] [place] [address] Care Team Providers Name Role Phone Nura Angella RICHARDSON Primary Care Provider Reason for Visit Reason Comments CONTROL Encounter Details Date Type Department Care Team Description 01/28/2019 Nurse Visit [facility]- Tosha Lyman, LEAD PL SQL DEVELOPER [address] [place] [address] OCP (oral contraceptive [place] Visit, [facility] Nurse pills) initiation [address] (Primary Dx) [place] [address] Allergies No Known Allergiesdocumented as of this encounter (statuses as of 01/28/2019) Medications Medication Sig Dispensed Refills Start Date End Date Status norethindrone-e.estradio Take 1 tablet by 1 Package 11 01/29/20 19 Active l-iron (MICROGESTIN FE) mouth daily. 1.5 mg-30 mcg (21)/75 mg (7) per tabletIndications: OCP (oral contraceptive pills) initiation documented as of this encounter (statuses as of 01/28/2019) Active Problems Problem Noted Date Gonococcal infection (acute) of lower genitourinary tr act 05/29/2018 BMI 35.0-35.9,adult 02/06/2018 Fibrocystic breast changes, bilateral 02/06/2018 documented as of this encounter (statuses as of 01/28/2019) Resolved Problems Problem Noted Date Resolved Date [...] examination 09/29/2013 07/20/2015 Overview: ICD10 Diagnosis Term Supervisor Felling Bucking Utility General counseling and advice for contraceptive management 0 09/29/2013 07/20/2015 Overview: ICD10 Diagnosis Term Supervisor Felling Bucking Utility Obesity 08/21/2012 01/16/2016 Overview: ICD10 Diagnosis Term Supervisor Felling Bucking Utility STD (female) 08/21/2012 09/29/2013 Overview: History of chlamydia Other inflammatory disease of cervix, vagina and vulva 07/3108/21/2012 Overview: Mass to mabia minora documented as of this encounter (statuses as of 01/28/2019) Immunizations Name Administration Dates Next Due Influenza [...] Sign Reading Time Taken Comments Blood Pressure 122/82 01/28/2019 10:42 AM CDT Pulse 82 01/28/2019 10:42 AM CDT Temperature 36.6 C (97.8 F) 01/28/2019 10:42 AM CDT Respiratory Rate 16 01/28/2019 10:42 AM CDT Oxygen Saturation - - Inhaled Oxygen Concentration - - Weight 90.8 kg (200 lb 4 oz) 01/28/2019 10:42 AM CDT Height 160 cm (5' 3") 01/28/2019 10:42 AM CDT Body Mass Index 35.47 01/28/2019 10:42 AM CDT documented in this encounter Patient Instructions Patient InstructionsConor Li RN - 01/28/2019 10:00 AM CDT Control: The Pill control pills contain hormones [...] with your healthcare provider. Date Last Reviewed: 08/08/201619994013-9125 [employer]. [address] [place] [address]. All rights reserved. This information is not intended as a substitute for professional medical care. Always follow your healthcare professional's instructions. documented in this encounter Progress Notes Conor Li RN - 01/28/2019 10:00 AM CDTPatient present in clinic for OCP start. LMP 12/26/2018 UPT #2 Negative Last sexual intercourse 01/12/2019 without protection. Pt states she should start her menses soon. Her cycles are regular with 2-3 days variance monthly. Advised patient to start OCPs this Saturday if she starts her cycle today or tomorrow. Advised patient if no cycle by Saturday, to repeat test. Pt verbalized understanding. Dispensed OCPs from clinic stock x 1 Name: Microgestin FE LOT: [id number] Cont:863-[id number] Exp:11/2019. Patient provided with education both written and verbal on control method chosen. Instructed patient to use a back up method for one month. Educated patient to RTC in 1 month for refill/nurse visit. Patient verbalized understanding. documented in this encounter Plan of Treatment Date Type Specialty Care Team Description 02/25/2019 [facility] Health Maintenance Due Date Last Done Comments INFLUENZA VACCINE (#1) 2019 03/13/2016 HPV VACCINES (1 - Female 01/12/2020 Postpon ed from 11/16/2007 3-dose series) (Insurance / Fin ancial) PAP SMEAR 02/06/2021 02/06/2018, 12/09/2014 DTaP,Tdap,and Td Vaccines (3 07/09/2026 07/09/2016, - Td) 2005 PNEUMOCOCCAL 0-64 YEARS Aged Out No longe r eligible based COMBINED SERIES on patient's age to complete this to [facility] documented as of this encounter Procedures Procedure Name Priority Date/Time Associated Diagnosis Comme nts POCT Routine 01/28/2019 10:45 OCP (oral Results f or this TEST AM CDT contraceptive pills) procedu re are in initiation the results section. documented in this encounter Results POCT TEST (01/28/2019 10:45 AM CDT) Pathologist Sig nature POCT PREG Negative On board controls acceptable Yes with C Line POCT PREG LOT # POCT PREG TEST DATE Specimen Urine - URINE, CLEAN CATCH documented in this encounter Visit Diagnoses Diagnosis OCP (oral contraceptive pills) initiatio n - Primary General counseling for prescription of o ral contraceptives documented in this encounter Insurance Payer Benefit Plan / Subscriber ID Effective Dates Phone Addre ss Type Group [facility] FAMILY FAMILY PLANNING [id number] 2018-Pres [place] Agency PLANNING SAUL SAUL [phone] ent [id number] [place] [address] documented as of this encounter Advance Directives Type Date Recorded Patient Transmission Repairer Explanati on Advance Directives and Living Will Power of Customer Manager Name Relationship Healthcare Agent Relationship Co mmunication Angella Myers Sibling Primary healthcare agent [phone] [email or web address]
--- OUTSIDE RECORDS SUMMARY | 2019-10-06 12:03 | XMS REPORT | Summary of Care ---
:1990 Author Organization [facility] Address [address] [place] [address] Care Team Providers Name Role Phone Nura Angella RICHARDSON Primary Care Provider Reason for Visit Reason Comments CONTROL Encounter Details Date Type Department Care Team Description 01/28/2019 Nurse Visit [facility] T[facility]ha Lyman, TEST LAB TECHNICIAN [address] [place] [address] OCP (oral contraceptive [place] Visit, [facility] Nurse pills) initiation [address] (Primary Dx) [place] [address] Allergies No Known Allergiesdocumented as of this encounter (statuses as of 01/30/2019) Medications Medication Sig Dispensed Refills Start Date End Date Status norethindrone-e.estradio Take 1 tablet by 1 Package 11 01/29/20 19 Active l-iron (MICROGESTIN FE) mouth daily. 1.5 mg-30 mcg (21)/75 mg (7) per tabletIndications: OCP (oral contraceptive pills) initiation documented as of this encounter (statuses as of 01/30/2019) Active Problems Problem Noted Date Gonococcal infection (acute) of lower genitourinary tr act 05/29/2018 BMI 35.0-35.9,adult 02/06/2018 Fibrocystic breast changes, bilateral 02/06/2018 documented as of this encounter (statuses as of 01/30/2019) Resolved Problems Problem Noted Date Resolved Date [...] examination 09/29/2013 07/20/2015 Overview: ICD10 Diagnosis Term Blacksmith Apprentice Utility General counseling and advice for contraceptive management 0 09/29/2013 07/20/2015 Overview: ICD10 Diagnosis Term Blacksmith Apprentice Utility Obesity 08/21/2012 01/16/2016 Overview: ICD10 Diagnosis Term Blacksmith Apprentice Utility STD (female) 08/21/2012 09/29/2013 Overview: History of chlamydia Other inflammatory disease of cervix, vagina and vulva 07/3108/21/2012 Overview: Mass to mabia minora documented as of this encounter (statuses as of 01/30/2019) Immunizations Name Administration Dates Next Due Influenza [...] with your healthcare provider. Date Last Reviewed: 08/08/201619992814-7197 [employer]. [address] [place] [address]. All rights reserved. This information is not [...] stock x 1 Name: Microgestin FE LOT: [id number] Cont:863-[id number] Exp:11/2019. Patient provided with education both written and verbal on control method chosen. Instructed patient to use a back up method for one month. Educated patient to RTC in 1 month for refill/nurse visit. Patient verbalized understanding. documented in this encounter Plan of Treatment Date Type Specialty Care Team Description 02/25/2019 [facility] Health Maintenance Due Date Last Done Comments INFLUENZA VACCINE (#1) 2019 03/13/2016 HPV VACCINES (1 - Female 01/12/2020 Postpon ed from 11/16/2007 3-dose series) (Insurance / Fin ancial) PAP SMEAR 02/06/2021 02/06/2018, 12/09/2014 DTaP,Tdap,and Td Vaccines (3 07/09/2026 07/09/2016, - Td) 2005 PNEUMOCOCCAL 0-64 YEARS Aged Out No longe r eligible based COMBINED SERIES on patient's age to complete this to [facility] documented as of this encounter Procedures Procedure [...] Effective Dates Phone Addre ss Type Group [facility] FAMILY FAMILY PLANNING [id number] 2018-Pres [place] Agency PLANNING SAUL SAUL [phone]% ent 201[address] [place] [address] documented as of this encounter Advance Directives Type Date Recorded Patient Rn Lactation Explanati on Advance Directives and Living Will Power of Slurry Tank Tender Name Relationship Healthcare Agent Relationship Co mmunication Angella Myers Sibling Primary healthcare agent [phone] [email or web address]
--- OUTSIDE RECORDS SUMMARY | 2019-10-06 12:03 | XMS REPORT | Summary of Care ---
:1990 Author Organization [facility] Address [address] [place] [address] Care Team Providers Name Role Phone Angella Lyman [facility] Primary Care Provider Reason for Visit Reason Comments Well Woman Exam CONTROL Encounter Details Date Type Department Care Team Description [facility]/14[facility] Wel l woman exam (Primary Dx); [facility] Encounter for general counseling and adv ice on contraceptive management; [address] BMI 36.0-36.9,adult; [place], [place] [address] Screen for STD (sexually transmitted dis ease); [address] [place] [address] History of gonorrhea [phone] Allergies No Known Allergiesdocumented as of this [...] examination 09/29/2013 07/20/2015 Overview: ICD10 Diagnosis Term Reading Interventionist Utility General counseling and advice for contraceptive management 0 09/29/2013 07/20/2015 Overview: ICD10 Diagnosis Term Reading Interventionist Utility Obesity 08/21/2012 01/16/2016 Overview: ICD10 Diagnosis Term Reading Interventionist Utility STD (female) 08/21/2012 09/29/2013 Overview: History [...] children in the future. Date Last Reviewed: 04/10/201719997100-4372 [employer]. [address] [place] [address]. All rights reserved. This information is not [...] with your healthcare provider. Date Last Reviewed: 08/08/201619999931-8795 [employer]. [address] [place] [address]. All rights reserved. This information is not [...] These injections are given by a health inspector health care facilities. You must not be before getting an injection. The injection is usually given during the first 5 days after the start of a menstrual period or 6 weeks after delivery of a baby. Talk to your focus puller regarding the use of this medicine in children. Special care may be needed. These injections have been used in female children who have started having menstrual periods. What side effects may I notice from receiving this medicine? Side effects that you should report to your doctor or health inspector health care facilities as soon as possible: allergic reactions like [...] attention (report to your doctor or health inspector health care facilities if they continue or are bothersome): acne [...] like ethotoin, felbamate, oxcarbazepine, phenytoin, topiramate modafinil The Silos's wort What if I miss a dose? [...] be given to you by a health inspector health care facilities. What should I tell my health care [...] risk for weak bones. Ask your health inspector health care facilities how you can keep strong bones. You may have a change in bleeding pattern or irregular periods. Many females stop having periods while taking this drug. If you have received your injections on time, your chance of being is very low. If you think you may be , see your health inspector health care facilities as soon as possible. Tell your health inspector health care facilities if you want to get within the next year. The effect of this medicine may last a long time after you get your last injection. NOTE:This sheet is a summary. It may not cover all possible information. If you have questions aboutthis medicine, talk to your doctor, pharmacist, or health care provider. Copyright 2018 [employer] Understanding STDs When it comes to sex, [...] to protect your future. Date Last Reviewed: 05/10/201619991181-5196 [employer]. [address] [place] [address], [place] [address]. All rights reserved. This information is not [...] does not recommend CBE. Date Last Reviewed: 03/10/201719997697-0949 [employer]. [address] [place] [address], [place] [address]. All rights reserved. This information is not [...] memory and body movement. Date Last Reviewed: 04/10/201619998596-6381 [employer]. [address] [place] [address]. All rights reserved. This information is not intended as a substitute for professional medical care. Always follow your healthcare professional's instructions. Clinical Breast Exam Many health organizations recommend a yearly clinical breast exam. This exam may be done by a rabbit dresser, family healthcare provider, nurse practitioner, nurse test designer, or specially trained nurse. Yearly breast exams [...] Guidelines for having clinical breast exams The [place] [employer]stetricians and Gynecologists recommends that [...] is best for you. Date Last Reviewed: 01/08/201719996887-4424 [employer]. [address] [place] [address]. All rights reserved. This information is not [...] breast self-examination (BSE). These experts include the [place] [employer], the U.S. Preventive Services Task Force, and the [place] [employer] of Obstetricians and Gynecologists. Some experts [...] they are not cancer. Date Last Reviewed: 01/08/201719992760-8011 [employer]. [address] [place] [address], [place] [address]. All rights reserved. This information is not [...] the food you eat. Date Last Reviewed: 01/08/201719993777-0297 [employer]. [address] [place] [address], [place] [address]. All rights reserved. This information is not [...] cinnamon, pepper, and hawa. Date Last Reviewed: 03/10/201719992456-4362 [employer]. [address] [place] [address], [place] [address]. All rights reserved. This information is not intended as a substitute for professional medical care. Always follow your healthcare professional's instructions. 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 [id number] [place] [address] documented as of this encounter Advance Directives Type Date Recorded Patient Lactation Coordinator Explanati on Advance Directives and Living Will Power of Daily Sales Audit Clerk Name Relationship Healthcare Agent Relationship Co mmunication Angella Myers Sibling Primary healthcare agent [phone] [email or web address]
--- OUTSIDE RECORDS SUMMARY | 2019-10-06 12:03 | XMS REPORT | Summary of Care ---
:1990 Author Organization [facility] Address [address] [place] [address] Care Team Providers Name Role Phone Angella Lyman GLASS RIBBON MACHINE OPERATOR ASSISTANT Primary Care Provider Encounter Details Date Type Department Care Team Description 02/25/2019 Orders Only [facility] Doctor Unassigned, No [address] [facility] [place] [address] [address] [place] [address] Allergies No Known Allergiesdocumented as of this encounter (statuses as of 02/25/2019) Medications Medication Sig Dispensed Refills Start Date End Date Status norethindrone-e.estradio Take 1 tablet by 1 Package 11 01/29/20 19 Active l-iron (MICROGESTIN FE) mouth daily. 1.5 mg-30 mcg (21)/75 mg (7) per tabletIndications: OCP (oral contraceptive pills) initiation documented as of this encounter (statuses as of 02/25/2019) Active Problems Problem Noted Date Gonococcal infection (acute) of lower genitourinary tr act 05/29/2018 BMI 35.0-35.9,adult 02/06/2018 Fibrocystic breast changes, bilateral 02/06/2018 documented as of this encounter (statuses as of 02/25/2019) Resolved Problems Problem Noted Date Resolved Date [...] examination 09/29/2013 07/20/2015 Overview: ICD10 Diagnosis Term Kindergarten Teacher Assistant Utility General counseling and advice for contraceptive management 0 09/29/2013 07/20/2015 Overview: ICD10 Diagnosis Term Kindergarten Teacher Assistant Utility Obesity 08/21/2012 01/16/2016 Overview: ICD10 Diagnosis Term Kindergarten Teacher Assistant Utility STD (female) 08/21/2012 09/29/2013 Overview: History of chlamydia Other inflammatory disease of cervix, vagina and vulva 07/3108/21/2012 Overview: Mass to mabia minora documented as of this encounter (statuses as of 02/25/2019) Immunizations Name Administration Dates Next Due Influenza [...] Date Type Specialty Care Team Description 02/25/2019 Office Visit OB Satellites Angella Lyman, GLASS RIBBON MACHINE OPERATOR ASSISTANT [address] [place], [place] [address] [phone] Health Maintenance Due Date Last Done Comments [...] Name Priority Date/Time Associated Diagnosis Comme nts ASSIGNMENT OF BENEFITS Routine 02/25/2019 9:15 AM CDT documented in this encounter Results Not on filedocumented in this encounter Advance Directives Type Date Recorded Patient Sap Senior Developer Explanati on Advance Directives and Living Will Power of Sound Art Instructor Name Relationship Healthcare Agent Relationship Co mmunication Angella Liz Primary healthcare agent [phone] [email or web address]
--- OUTSIDE RECORDS SUMMARY | 2019-10-06 12:04 | XMS REPORT | Summary of Care ---
:1990 Author Organization [facility] Address [address] [place] [id number] Care Team Providers Name Role Phone Angella Lyman [facility] Primary Care Provider Reason for Visit Reason Comments CONTROL Encounter Details Date Type Department Care Team Description [facility], Sandi veillance of [facility] previously prescribed [address] contraceptive pill [place], [place] (Primary Dx) [id number] [place] [address] [phone] Allergies No Known Allergiesdocumented as of this [...] examination 09/29/2013 07/20/2015 Overview: ICD10 Diagnosis Term Riding Double Utility General counseling and advice for contraceptive management 0 09/29/2013 07/20/2015 Overview: ICD10 Diagnosis Term Riding Double Utility Obesity 08/21/2012 01/16/2016 Overview: ICD10 Diagnosis Term Riding Double Utility STD (female) 08/21/2012 09/29/2013 Overview: History [...] Sign Reading Time Taken Comments Blood Pressure 118/87 02/25/2019 9:35 AM CDT Pulse 90 02/25/2019 9:35 AM CDT Temperature 36.9 C (98.5 F) 02/25/2019 9:35 AM CDT Respiratory Rate 16 02/25/2019 9:35 AM CDT Oxygen Saturation - - Inhaled Oxygen Concentration - - Weight 88.6 kg (195 lb 4 oz) 02/25/2019 9:35 AM CDT Height 160 cm (5' 3") 02/25/2019 9:35 AM CDT Body Mass Index 34.59 02/25/2019 9:35 AM CDT documented in this encounter Patient Instructions Patient InstructionsSamantha Shine RN - 02/25/2019 9:30 AM CDT Ethinyl Estradiol; Norethindrone Acetate tablets (contraception) Brand Names: Gildess, Junel , Junel 06/29, SAM, Loestrin .11/06, Loestrin 06/29, Microgestin .11/06, Microgestin 06/29 What is this medicine? ETHINYL ESTRADIOL; NORETHINDRONE ACETATE (ETH in il es tra DYE ole; nor eth IN drone e ram) is an oral contraceptive. The products combine two types of female hormones, an estrogen and a progestin.They are used to prevent ovulation and . How should I use this medicine? Take this medicine by mouth. To reduce nausea, this medicine may be taken with food. Follow the directions on the prescription label. Take this medicine at the same time each day and in the order directed on the package. Do not take your medicine more often than directed. Contact your officer captain regarding the use of this medicine in children. Special care may be needed. This medicine has been used in female children who have started having menstrual periods. A patient package insert for the product will be given with each prescription and refill. Read this sheet carefully each time. The sheet may change frequently. What side effects may I notice from receiving this medicine? Side effects that you should report to your doctor or health reservoir caretaker as soon as possible: breast tissue changes or discharge changes in vaginal bleeding during your period or between your periods chest pain coughing up blood dizziness or fainting spells headaches or migraines leg, arm or groin pain severe or sudden headaches stomach pain (severe) sudden shortness of breath sudden loss of coordination, especially on one side of the body speech problems symptoms of vaginal infection like itching, irritation or unusual discharge tenderness in the upper abdomen vomiting weakness or numbness in the arms or legs, especially on one side of the body yellowing of the eyes or skin Side effects that usually do not require medical attention (report to your doctor or health reservoir caretaker if they continue or are bothersome): breakthrough bleeding and spotting that continues beyond the 3 initial cycles of pills breast tenderness mood changes, anxiety, depression, frustration, anger, or emotional outbursts increased sensitivity to sun or ultraviolet light nausea skin rash, acne, or brown spots on the skin weight gain (slight) What may interact with this medicine? Do not take this medicine with the following medication: dasabuvir; ombitasvir; paritaprevir; ritonavir ombitasvir; paritaprevir; ritonavir This medicine may also interact with the following medications: acetaminophen antibiotics or medicines for infections, especially rifampin, rifabutin, rifapentine, and griseofulvin, and possibly penicillins or tetracyclines aprepitant ascorbic acid (vitamin C) atorvastatin barbiturate medicines, such as phenobarbital bosentan carbamazepine caffeine clofibrate cyclosporine dantrolene doxercalciferol felbamate grapefruit juice hydrocortisone medicines for anxiety or sleeping problems, such as diazepam or temazepam medicines for diabetes, including pioglitazone mineral oil modafinil mycophenolate nefazodone oxcarbazepine phenytoin prednisolone ritonavir or other medicines for HIV infection or AIDS rosuvastatin selegiline soy isoflavones supplements Lacomb's wort tamoxifen or raloxifene theophylline thyroid hormones topiramate warfarin What if I miss a dose? If you miss a dose, refer to the patient information sheet you received with your medicine for direction. If you miss more than one pill, this medicine may not be as effective and you may need to use another form of control. Where should I keep my medicine? Keep out of the reach of children. Store at room temperature between 15 and 30 degrees C (59 and 86 degrees F). Throw away any unused medicine after the expiration date. What should I tell my health care provider before I take this medicine? They need to know if you have or ever had any of these conditions: abnormal vaginal bleeding blood vessel disease or blood clots breast, cervical, endometrial, ovarian, liver, or uterine cancer diabetes gallbladder disease heart disease or recent heart attack high blood pressure high cholesterol kidney disease liver disease migraine headaches stroke systemic lupus erythematosus (SLE) tobacco smoker an unusual or allergic reaction to estrogens, progestins, other medicines, foods, dyes, or preservatives or trying to get breast-feeding What should I watch for while using this medicine? Visit your doctor or health reservoir caretaker for regular checks on your progress. You will need a regular breast and pelvic exam and Pap smear while on this medicine. Use an additional method of contraception during the first cycle that you take these tablets. If you have any reason to think you are , stop taking this medicine right away and contact your doctor or health reservoir caretaker. If you are taking this medicine for hormone related problems, it may take several cycles of use to see improvement in your condition. Smoking increases the risk of getting a blood clot or having a stroke while you are taking control pills, especially if you are more than 35 years old. You are strongly advised not to smoke. This medicine can make your body retain fluid, making your fingers, hands, or ankles swell. Your blood pressure can go up. Contact your doctor or health reservoir caretaker if you feel you are retaining fluid. This medicine can make you more sensitive to the sun. Keep out of the sun. If you cannot avoid beingin the sun, wear protective clothing and use sunscreen. Do not use sun lamps or tanning beds/booths. If you wear contact lenses and notice visual changes, or if the lenses begin to feel uncomfortable, consult your eye home health caregiver. In some women, tenderness, swelling, or minor bleeding of the gums may occur. Notify your dentist ifthis happens. Brushing and flossing your teeth regularly may help limit this. See your dentist regularly and inform your dentist of the medicines you are taking. If you are going to have elective surgery, you may need to stop taking this medicine before the surgery. Consult your health reservoir caretaker for advice. This medicine does not protect you against HIV infection (AIDS) or any other sexually transmitted diseases. NOTE:This sheet is a summary. It may not cover all possible information. If you have questions aboutthis medicine, talk to your doctor, pharmacist, or health care provider. Copyright 2018 Elsevier documented in this encounter Progress Notes Samantha Shine RN - 02/25/2019 9:30 AM CDTPatient present in clinic for OCP refill Microgestin FE x 4 pack dispensed from clinic stock as ordered by provider.LOT: [id number] Cont:[id number] Exp:11/2019 Patient provided with education both written and verbal on control method chosen. Instructed patient to use a back up method for one month. Educated patient to RTC in 3 months for refill/nurse visit. Patient verbalized understanding. SAMANTHA SHINE RN 02/25/2019 9:49 AM Angella Lyman FNP - 02/25/2019 9:30 AM CDT Chief complaint: Chief Complaint Patient presents with CONTROL HPI Zoie Myers is a 28 year old here for contraceptive management. She was started on OCPslast month. Started menses 02/01/19 and started OCPs same day. She reports some irregular bleeding this month, but denies any other issues or concerns. Desires to continue. 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 Allergies Zoie has No Known Allergies. Medications Zoie has a current medication list which includes the following prescription(s): norethindrone-e.estradiol-iron. Review of Systems Constitutional: Negative. Breasts: Negative. Gastrointestinal: Negative. Genitourinary: Negative. Neurological: Negative. Psychiatric/Behavioral: Negative. BP 118/87 | Pulse 90 | Temp 36.9 C (98.5 F) | Resp 16 | Ht 5' 3" (1.6 m) | Wt 195 lb 4 oz (88.6 kg) | LMP 02/02/2019 (Approximate) | BMI 34.59 kg/m Pregravid BMI: Could not be calculated Physical Exam Vitals reviewed. Constitutional: She is oriented to person, place, and time. She appears well- developed and well-nourished. Her body habitus is obese. Pulmonary/Chest: Normal inspiratory effort. Neuro/Psychiatric: She has a normal mood and affect. She is oriented to person, place, and time. Assessment/Plan 1. Surveillance of previously prescribed contraceptive pill Satisfied with method, desires to continue - POCT TEST Return to clinic in 12 weeks. Discussed treatment options. Medications as ordered. Reviewed patient instructions and provided printed copy. This visit did not involve counseling and coordination that comprised more than 50% of the visit time. documented in this encounter Plan of Treatment Date Type Specialty Care Team Description 05/20/2019 Nurse Visit OB Satellites Visit, [facility] Nurse Health Maintenance Due Date Last Done Comments INFLUENZA VACCINE (#1) 2019 03/13/2016 HPV VACCINES (1 - Female 01/12/2020 Postpon ed from 11/16/2007 3-dose series) (Insurance / [facility] ancial) PAP SMEAR 02/06/2021 02/06/2018, 12/09/2014 DTaP,Tdap,and Td Vaccines (3 07/09/2026 07/09/2016, - Td) 2005 PNEUMOCOCCAL 0-64 YEARS Aged Out No longe r eligible based COMBINED SERIES on patient's age to complete this to [facility] documented as of this encounter Procedures Procedure Name Priority Date/Time Associated Diagnosis Comme nts POCT Routine 02/25/2019 9:40 Surveillance of Result s for this TEST AM CDT previously prescribed proced ure are in contraceptive pill the resul ts section. documented in this encounter Results POCT TEST (02/25/2019 9:40 AM CDT) Pathologist Sig nature POCT PREG Negative On board controls acceptable Yes with C Line POCT PREG LOT # POCT PREG TEST DATE Specimen Urine - URINE, CLEAN CATCH documented in this encounter Visit Diagnoses Diagnosis Surveillance of previously prescribed co ntraceptive pill - Primary documented in this encounter Insurance Payer Benefit Plan / Subscriber ID Effective Dates Phone Addre ss Type Group [facility] FAM[facility] FAMILY PLANNING [id number] 2019-[place] [employer] PLANNING SAUL SAUL [phone] nt [id number] [place] [address] documented as of this encounter Advance Directives Type Date Recorded Patient Dietetic Technician Registered Explanati on Advance Directives and Living Will Power of Weigher Bulker Name Relationship Healthcare Agent Relationship Co mmunication Angella Myers Sibling Primary healthcare agent [phone] [email or web address]
--- OUTSIDE RECORDS SUMMARY | 2019-10-06 12:04 | XMS REPORT | Summary of Care ---
:1990 Author [address] [facility] Address [address] [place] [address] Care Team Providers Name Role Phone Angella Lyman [facility] Primary Care Provider Reason for Visit Reason Comments Vaginal Discharge Encounter Details Date Type Department Care Team Description 07/08/2019 Office Visit [facility]- Angella Lyman, Can didiasis of vulva and vagina (Primary Dx); [facility] Vaginal discharge [address] [facility] [place] [address] [place], [place] [id number] Allergies No Known Allergiesdocumented as of this encounter (statuses as of 07/09/2019) Medications Medication Sig Dispensed Refills Start Date End Date Status norethindrone-e.estra Take 1 tablet by 1 Package 11 01/28/2019 Active diol-iron mouth daily. (MICROGESTIN FE) 1.5 mg-30 mcg (21)/75 mg (7) per tabletIndications: OCP (oral contraceptive pills) initiation clotrimazole 1 % Insert 1 315 g 0 07/08/2019 07/15/2019 A ctive vaginal Applicator into creamIndications: vagina at bedtime Candidiasis of vulva for 7 days. 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 Utility General counseling and advice for contraceptive management 0 09/29/2013 07/20/2015 Overview: ICD10 Diagnosis Term Air Twist Operator Utility Obesity 08/21/2012 01/16/2016 Overview: ICD10 Diagnosis Term Air Twist Operator Utility STD (female) 08/21/2012 09/29/2013 Overview: History of chlamydia Other inflammatory disease of cervix, vagina and vulva 07/3108/21/2012 Overview: Mass to mabia minora documented as of this encounter (statuses as of 07/09/2019) Immunizations Name Administration Dates Next Due Influenza [...] Sign Reading Time Taken Comments Blood Pressure 116/84 07/08/2019 4:30 PM EVENT MANAGER Pulse 85 07/08/2019 4:29 PM EVENT MANAGER Temperature 36.8 C (98.3 F) 07/08/2019 4:29 PM EVENT MANAGER Respiratory Rate 16 07/08/2019 4:29 PM EVENT MANAGER Oxygen Saturation - - Inhaled Oxygen Concentration - - Weight 87.2 kg (192 lb 3 oz) 07/08/2019 4:29 PM EVENT MANAGER Height 160 cm (5' 3") 07/08/2019 4:29 PM EVENT MANAGER Body Mass Index 34.04 07/08/2019 4:29 PM EVENT MANAGER documented in this encounter Progress Notes Angella Lyman, BOTTLE MACHINE OPERATOR - 07/08/2019 4:00 PM CST Chief complaint: Chief Complaint Patient 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 This is a new problem. The current episodestarted in the past 7 days. The problem occurs daily. The problem has been unchanged. The patient isexperiencing no pain. She is not . She was exposed to new detergent/soap. She wears cotton underwear. The vaginal discharge was white and thick. She has tried nothing for the symptoms. No, herpartner does not have an STD. She uses oral contraceptives for contraception. Her menstrual history has been regular. Her past medical history is significant for an STD. (Gonorrhea) Patient reports sexually active. 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 Social Needs Financial resource strain: Not on file Food insecurity: Worry: Not on file Inability: Not on file Transportation needs: Medical: Not on file Non-medical: Not on file Tobacco Use Smoking status: Never Smoker Smokeless tobacco: Never Used Substance and Sexual Activity Alcohol use: Yes Alcohol/week: 0.0 standard drinks Comment: socially- every other weekend Drug use: No Sexual activity: Yes Partners: Male control/protection: Condom Comment: last had sex: 01/12/2019 Lifestyle Physical activity: Days per week: Not on file Minutes per session: Not on file Stress: Not on file Relationships Social connections: Talks on phone: Not on file Gets together: Not on file Attends restoration service: Not on file Active member of [...] Review of Systems Constitutional: Negative. Breasts: Negative. Cardiovascular: Negative. Genitourinary: Positive for vaginal discharge. Neurological: Negative. Psychiatric/Behavioral: Negative. Endocrine: Endocrine negative BP 116/84 (BP Location: Left arm, Patient Position: Sitting, BP CUFF SIZE: Adult Medium) | Pulse 85 | Temp 36.8 C (98.3 F) (Oral) | Resp 16 | Ht 5' 3" (1.6 m) | Wt 192 lb 3 oz (87.2 kg) | LMP06/16/2019 (Exact Date) | BMI 34.04 kg/m Pregravid BMI: Could not be calculated Physical Exam Vitals reviewed. Constitutional: She is oriented to person, place, and time. She appears well- developed and well-nourished. Her body habitus is normal. Pulmonary/Chest: Normal inspiratory effort. Neuro/Psychiatric: She has a normal mood and affect. She is oriented to person, place, and time. External genitalia: Normal external genitalia appropriate for age. Vagina:Vaginal discharge found. Cottage cheese like discharge adherent to vaginal ramos Cervix: Normal cervix. Is Wet Prep Result Normal or Abnormal?: (!) Abnormal Clue Cells: None Trichomonas: Negative Whiff Test: Negative Yeast: Positive Assessment/Plan 1. Vaginal discharge - GC & CHLAMYDIA AMPLIFIED ASSAY 2. Candidiasis of vulva and vagina Wet prep with + yeast Personal hygiene reviewed. Encouraged patient to avoid all bath products/chemicals and tight fittingspandex or yoga pants for long periods of time. Wear loose fitting cotton underwear. Recommend OTC probiotic. - clotrimazole 1 % vaginal cream; Insert 1 Applicator into vagina at bedtime for 7 days. Dispense: 315 g; Refill: 0 Discussed treatment options. Medications as ordered. Reviewed patient instructions and provided printed copy. This visit did not involve counseling and coordination that comprised more than 50% of the visit time. T MANAGER documented in this encounter Plan of Treatment Date Type Specialty Care Team Description 08/19/2019 Nurse Visit OB Satellites Visit, [facility] Nurse Name Type Priority Associated Diagnoses Date/Ti me GC & CHLAMYDIA AMPLIFIED LAB Routine Vaginal discharg e 07/08/2019 4:50 PM EVENT MANAGER ASSAY Health Maintenance Due Date Last Done Comments HPV VACCINES (1 - Female 01/12/2020 Postpon ed from 11/16/2003 2-dose series) (Insurance / Fin ancial) INFLUENZA VACCINE (#1) 2020 03/13/2016 Postponed from 02/08/2019 (Refused) PAP SMEAR 02/06/2021 02/06/2018, 12/09/2014 DTaP,Tdap,and Td Vaccines (3 07/09/2026 07/09/2016, - Td) 2005 PNEUMOCOCCAL 0-64 YEARS Aged Out No longe r eligible based COMBINED SERIES on patient's age to complete this to [facility] documented as of this encounter Results Not on filedocumented in this encounter Visit Diagnoses Diagnosis Candidiasis of vulva and vagina - Primar y Vaginal discharge Leukorrhea, not specified as infective documented in this encounter Insurance Payer Benefit Plan / Subscriber ID Effective Dates Phone Addre ss Type Group [facility] FAM[facility] FAMILY PLANNING [id number] 2019-[place] Agency PLANNING SAUL SAUL [phone]% nt [id number] [place] [address] documented as of this encounter Advance Directives Type Date 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
--- OUTSIDE RECORDS SUMMARY | 2019-10-06 12:04 | XMS REPORT | Summary of Care ---
:1990 Author Organization [facility] Address [address] [place] [address] Care Team Providers Name Role Phone Angella Lyman [facility] Primary Care Provider Reason for Visit Reason Comments CONTROL Encounter Details Date Type Department Care Team Description 02/[facility]/2019 [facility], Sandi veillance of [facility] previously prescribed [address] contraceptive pill [place], [place] (Primary Dx) [id number] [place] [address] [phone] Allergies No Known Allergiesdocumented as of this [...] examination 09/29/2013 07/20/2015 Overview: ICD10 Diagnosis Term Senior J2Ee Developer Utility General counseling and advice for contraceptive management 0 09/29/2013 07/20/2015 Overview: ICD10 Diagnosis Term Senior J2Ee Developer Utility Obesity 08/21/2012 01/16/2016 Overview: ICD10 Diagnosis Term Senior J2Ee Developer Utility STD (female) 08/21/2012 09/29/2013 Overview: History [...] medicine more often than directed. Contact your claim review medical director regarding the use of this medicine in [...] should report to your doctor or health career development associate as soon as possible: breast tissue changes [...] attention (report to your doctor or health career development associate if they continue or are bothersome): breakthrough [...] or AIDS rosuvastatin selegiline soy isoflavones supplements [place]'s wort tamoxifen or raloxifene theophylline thyroid hormones [...] this medicine? Visit your doctor or health career development associate for regular checks on your progress. You will need a regular breast and pelvic exam and Pap smear while on this medicine. Use an additional method of contraception during the first cycle that you take these tablets. If you have any reason to think you are , stop taking this medicine right away and contact your doctor or health career development associate. If you are taking this medicine for [...] go up. Contact your doctor or health career development associate if you feel you are retaining fluid. This medicine can make you more sensitive to the sun. Keep out of the sun. If you cannot avoid beingin the sun, wear protective clothing and use sunscreen. Do not use sun lamps or tanning beds/booths. If you wear contact lenses and notice visual changes, or if the lenses begin to feel uncomfortable, consult your eye overnight caregiver. In some women, tenderness, swelling, or [...] medicine before the surgery. Consult your health career development associate for advice. This medicine does not protect you against HIV infection (AIDS) or any other sexually transmitted diseases. NOTE:This sheet is a summary. It may not cover all possible information. If you have questions aboutthis medicine, talk to your doctor, pharmacist, or health care provider. 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 Social Needs Financial resource strain: Not [...] file Gets together: Not on file Attends moravian service: Not on file Active member of [...] Description 05/20/2019 Nurse Visit OB Satellites Visit, [facility] Nurse Health Maintenance Due Date Last Done Comments INFLUENZA VACCINE (#1) 2019 03/13/2016 HPV VACCINES (1 - Female 01/12/2020 Postpon ed from 11/16/2007 3-dose series) (Insurance / [facility] ancial) PAP SMEAR 02/06/2021 02/06/2018, 12/09/2014 DTaP,Tdap,and Td Vaccines (3 07/09/2026 07/09/2016, - Td) 2005 PNEUMOCOCCAL 0-64 YEARS Aged Out No longe r eligible based COMBINED SERIES on patient's age to complete this to [facility] documented as of this encounter Procedures [...] Effective Dates Phone Addre ss Type Group [facility] FAMILY FAMILY PLANNING [id number] 2019-[place] Agency PLANNING SAUL SAUL [phone]% nt [phone] [place] [address] documented as of this encounter Advance Directives Type Date Recorded Patient Saddle Cutter Explanati on Advance Directives and Living Will Power of Film Sorter Name Relationship Healthcare Agent Relationship Co mmunication Angella Myers Sibling Primary healthcare agent [phone] [email or web address]
--- OUTSIDE RECORDS SUMMARY | 2019-10-06 12:05 | XMS REPORT | Summary of Care ---
:1990 Author Organization [facility] Address [address] [place] [address] Care Team Providers Name Role Phone Angella Lyman [facility] Primary Care Provider Reason for Visit Reason Comments Vaginal Discharge Encounter Details Date Type Department Care Team Description 07/08/2019 Office Visit [facility]- Angella Lyman, Can didiasis of vulva and vagina (Primary Dx); [facility] Vaginal discharge [address] [facility] [place] [address] [place], [place] [id number] Allergies No Known Allergiesdocumented as of this encounter (statuses as of 07/08/2019) Medications Medication Sig Dispensed Refills Start Date [...] as of this encounter (statuses as of 07/08/2019) Active Problems Problem Noted Date Gonococcal infection (acute) of lower genitourinary tr act 05/29/2018 BMI 35.0-35.9,adult 02/06/2018 Fibrocystic breast changes, bilateral 02/06/2018 documented as of this encounter (statuses as of 07/08/2019) Resolved Problems Problem Noted Date Resolved Date [...] examination 09/29/2013 07/20/2015 Overview: ICD10 Diagnosis Term Bottle Dealer Utility General counseling and advice for contraceptive management 0 09/29/2013 07/20/2015 Overview: ICD10 Diagnosis Term Bottle Dealer Utility Obesity 08/21/2012 01/16/2016 Overview: ICD10 Diagnosis Term Bottle Dealer Utility STD (female) 08/21/2012 09/29/2013 Overview: History of chlamydia Other inflammatory disease of cervix, vagina and vulva 07/3108/21/2012 Overview: Mass to mabia minora documented as of this encounter (statuses as of 07/08/2019) Immunizations Name Administration Dates Next Due Influenza [...] Comments Blood Pressure 116/84 07/08/2019 4:30 PM AIR TESTER Pulse 85 07/08/2019 4:29 PM AIR TESTER Temperature 36.8 C (98.3 F) 07/08/2019 4:29 PM AIR TESTER Respiratory Rate 16 07/08/2019 4:29 PM AIR TESTER Oxygen Saturation - - Inhaled Oxygen Concentration - - Weight 87.2 kg (192 lb 3 oz) 07/08/2019 4:29 PM AIR TESTER Height 160 cm (5' 3") 07/08/2019 4:29 PM AIR TESTER Body Mass Index 34.04 07/08/2019 4:29 PM AIR TESTER documented in this encounter Progress Notes Angella Lyman, FLOOR COVERER - 07/08/2019 4:00 PM CST Chief complaint: Chief Complaint Patient 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 TESTER documented in this encounter Plan of Treatment Date Type Specialty Care Team Description 08/19/2019 Nurse Visit OB Satellites Visit, [facility] Nurse Name Type Priority Associated Diagnoses Order S chedule GC & CHLAMYDIA AMPLIFIED ASSAY LAB Routine Vaginal di scharge Ordered: 07/08/2019 Health Maintenance Due Date Last Done Comments [...] on patient's age to complete this to [facility] documented as of this encounter Results Not on filedocumented in this encounter Visit Diagnoses Diagnosis Candidiasis of vulva and vagina - Primar y Vaginal discharge Leukorrhea, not specified as infective documented in this encounter Insurance Payer Benefit Plan / Subscriber ID Effective Dates Phone Addre ss Type Group [facility] FAMILY FAMILY PLANNING [id number] 2019-[place] Agency PLANNING SAUL SAUL [phone] nt [id number] [place] [address] Guarantor Name Account Type Relation to Date of Phone Billing Address Patient Zoie Myers [facility] Self 1990 [address] (Home) [facility] [address] [place] [address] documented as of this encounter Advance Directives Type Date Recorded Patient Miller Head Wet Process Explanati on Advance Directives and Living Will Power of Heating Element Winder Name Relationship Healthcare Agent Relationship Co mmunication Angella Myers Sibling Primary healthcare agent
--- OUTSIDE RECORDS SUMMARY | 2019-10-06 12:05 | XMS REPORT | Summary of Care ---
:1990 Author Organization [facility] Address [address] [place] [address] Care Team Providers Name Role Phone Angella Lyman [facility] Primary Care Provider Reason for Visit Reason Comments Vaginal Discharge Encounter Details Date Type Department Care Team Description 07/08/2019 Office Visit [facility]- Angella Lyman, Can didiasis of vulva and vagina (Primary Dx); [facility] Vaginal discharge [address] [facility] [place] [address] [place], [place] [address] Allergies No Known Allergiesdocumented as of this [...] examination 09/29/2013 07/20/2015 Overview: ICD10 Diagnosis Term Compliance Project Manager Utility General counseling and advice for contraceptive management 0 09/29/2013 07/20/2015 Overview: ICD10 Diagnosis Term Compliance Project Manager Utility Obesity 08/21/2012 01/16/2016 Overview: ICD10 Diagnosis Term Compliance Project Manager Utility STD (female) 08/21/2012 09/29/2013 Overview: History [...] Comments Blood Pressure 116/84 07/08/2019 4:30 PM RESEARCH NURSE PRACTITIONER Pulse 85 07/08/2019 4:29 PM RESEARCH NURSE PRACTITIONER Temperature 36.8 C (98.3 F) 07/08/2019 4:29 PM RESEARCH NURSE PRACTITIONER Respiratory Rate 16 07/08/2019 4:29 PM RESEARCH NURSE PRACTITIONER Oxygen Saturation - - Inhaled Oxygen Concentration - - Weight 87.2 kg (192 lb 3 oz) 07/08/2019 4:29 PM RESEARCH NURSE PRACTITIONER Height 160 cm (5' 3") 07/08/2019 4:29 PM RESEARCH NURSE PRACTITIONER Body Mass Index 34.04 07/08/2019 4:29 PM RESEARCH NURSE PRACTITIONER documented in this encounter Progress Notes Angella Lyman, COTTON ACREAGE MEASURER - 07/08/2019 4:00 PM CST Chief complaint: Chief Complaint Patient 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 Discharge 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 ARCH NURSE PRACTITIONER documented in this encounter Plan of Treatment Date Type Specialty Care Team Description 08/19/2019 Nurse Visit OB Satellites Visit, [facility] Nurse Name Type Priority Associated Diagnoses [...] age to complete this to [facility] documented as of this encounter Results Not on filedocumented in this encounter Visit Diagnoses Diagnosis Candidiasis of vulva and vagina - Primar y Vaginal discharge Leukorrhea, not specified as infective documented in this encounter Insurance Payer Benefit Plan / Subscriber ID Effective Dates Phone Addre ss Type Group [facility] FAMILY FAMILY PLANNING [id number] 2019-[place] Agency PLANNING SAUL SAUL [phone]% nt [id number] [place] [address] documented as of this encounter Advance Directives Type Date Recorded Patient Picture Painter Explanati on Advance Directives and Living Will Power of Pad Machine Offbearer Name Relationship Healthcare Agent Relationship Co mmunication Angella Myers Sibling Primary healthcare agent
--- OUTSIDE RECORDS SUMMARY | 2019-10-06 12:05 | XMS REPORT | Summary of Care ---
:1990 Author Organization [facility] Address [address] [place] [address] Care Team Providers Name Role Phone Angella Lyman [facility] Primary Care Provider Reason for Visit Reason Comments Vaginal Discharge Encounter Details Date Type Department Care Team Description 07/08/2019 Office Visit [facility]- Angella Lyman, Can didiasis of vulva and vagina (Primary Dx); [facility] Vaginal discharge [address] [facility] [place] [address] [place], [place] [address] Allergies No Known Allergiesdocumented as of this [...] examination 09/29/2013 07/20/2015 Overview: ICD10 Diagnosis Term Environmental Designer Utility General counseling and advice for contraceptive management 0 09/29/2013 07/20/2015 Overview: ICD10 Diagnosis Term Environmental Designer Utility Obesity 08/21/2012 01/16/2016 Overview: ICD10 Diagnosis Term Environmental Designer Utility STD (female) 08/21/2012 09/29/2013 Overview: History [...] Comments Blood Pressure 116/84 07/08/2019 4:30 PM DATA INTEGRATION ANALYST Pulse 85 07/08/2019 4:29 PM DATA INTEGRATION ANALYST Temperature 36.8 C (98.3 F) 07/08/2019 4:29 PM DATA INTEGRATION ANALYST Respiratory Rate 16 07/08/2019 4:29 PM DATA INTEGRATION ANALYST Oxygen Saturation - - Inhaled Oxygen Concentration - - Weight 87.2 kg (192 lb 3 oz) 07/08/2019 4:29 PM DATA INTEGRATION ANALYST Height 160 cm (5' 3") 07/08/2019 4:29 PM DATA INTEGRATION ANALYST Body Mass Index 34.04 07/08/2019 4:29 PM DATA INTEGRATION ANALYST documented in this encounter Progress Notes Angella Lyman, COTTONSEED MEAT PRESSER - 07/08/2019 4:00 PM CST Chief complaint: Chief Complaint Patient 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 INTEGRATION ANALYST documented in this encounter Plan of Treatment Date Type Specialty Care Team Description 08/19/2019 Nurse Visit OB Satellites Visit, [facility] Nurse Name Type Priority Associated Diagnoses Date/Ti me GC & CHLAMYDIA AMPLIFIED LAB Routine Vaginal discharg e 07/08/2019 4:50 PM DATA INTEGRATION ANALYST ASSAY Health Maintenance Due Date Last Done [...] on patient's age to complete this to [facility] documented as of this encounter Results Not on filedocumented in this encounter Visit Diagnoses Diagnosis Candidiasis of vulva and vagina - Primar y Vaginal discharge Leukorrhea, not specified as infective documented in this encounter Insurance Payer Benefit Plan / Subscriber ID Effective Dates Phone Addre ss Type Group [facility] FAMILY FAMILY PLANNING [id number] 2019-[place] Agency PLANNING SAUL SAUL [phone] nt [id number] [place] [address] documented as of this encounter Advance Directives Type Date Recorded Patient Snaker Driving Horses Explanati on Advance Directives and Living Will Power of Bisque Brusher Name Relationship Healthcare Agent Relationship Co mmunication Angella Myers Sibling Primary healthcare agent
[2019-10-06] MEDS ORDERED: dexAMETHasone 10 MG/ML VIAL ONE (12:20)
[2019-10-06] MEDS ORDERED: ACETAMINOPHEN 500 MG TAB ONE (12:21)
--- NOTE | 2019-10-06 12:45 | EDPHYS ---
Physician Documentation [facility] Name: Zoie Myers Age: 28 yrs Sex: Female : 1990 Arrival Date: 10/06/2019 Time: 11:35 Bed 20 Private MD: ED Physician Og Spicer HPI: 10/05 12:24 This 28 yrs old Female presents to ER via Ambulatory with complaints of Fever, rn Sore Throat. 12:24 The patient reports fever, that was measured at 101.4 degrees Fahrenheit. Onset: The rn symptoms/episode began/occurred yesterday. Modifying factors: there are no obvious modifying factors. Severity of symptoms: At their worst the symptoms were mild in the emergency department the symptoms are unchanged. The patient has not experienced similar symptoms in the past. The patient has not recently seen a physician. 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 - Social history:: Smoking status: Patient denies any tobacco usage or history of. - Family history:: not pertinent. - Hospitalizations: : No recent hospitalization is reported. ROS: 12:24 Constitutional: + fever Eyes: Negative for injury, pain, redness, and discharge, ENT: + rn sore throat Neck: Negative for injury, pain, and swelling, Cardiovascular: Negative for chest pain, palpitations, and edema, Respiratory: Negative for shortness of breath, cough, wheezing, and pleuritic chest pain, Abdomen/GI: Negative for abdominal pain, nausea, vomiting, diarrhea, and constipation, MS/Extremity: Negative for injury and deformity, Skin: Negative for injury, rash, and discoloration, Neuro: Negative for headache, weakness, numbness, tingling, and seizure. Exam: 12:24 Constitutional: This is a well developed, well nourished patient who is awake, alert, rn and in no acute distress. Head/Face: Normocephalic, atraumatic. Eyes: Pupils equal round and reactive to light, extra-ocular motions intact. Lids and lashes normal. Conjunctiva and sclera are non-icteric and not injected. Cornea within normal limits. Periorbital areas with no swelling, redness, or edema. ENT: + tonsillar hypertrophy with exudate, no stridor, uvula midline, no peritonsillar abscess Neck: Trachea midline, no crepitus, + bilateral tender cervical LAD. Supple, full range of motion without nuchal rigidity. No Meningismus. Respiratory: Speaking full sentences Skin: Warm, dry with normal turgor. Normal color with no rashes, no lesions, and no evidence of cellulitis. Neuro: Awake and alert, GCS 15 Vital Signs: 11:41 BP 121 / 88; Pulse 121; Resp 18 S; Temp 101.4(TE); Pulse Ox 99% on R/A; Weight 89.81 iw kg; Height 5 ft. 3 in. (160.02 cm); Pain 5/10; 12:42 BP 124 / 85; Pulse 114; Resp 20; Pulse Ox 100% ; bp 12:50 BP 116 / 66; Pulse 107; Resp 20; Temp 101.1(O); Pulse Ox 99% ; lt1 11:41 Body Mass Index 35.07 (89.81 kg, 160.02 cm) iw MDM: 11:52 Patient medically screened. rn 12:43 Differential diagnosis: viral Infection, bacterial infection, tonsillitis. Data rn reviewed: vital signs, nurses notes, lab test result(s), and as a result, I will discharge patient. Counseling: I had a detailed discussion with the patient and/or guardian regarding: the historical points, exam findings, and any diagnostic results supporting the discharge/admit diagnosis, lab results, the need for outpatient follow up, to return to the emergency department if symptoms worsen or persist or if there are any questions or concerns that arise at home. Special discussion: I discussed with the patient/guardian in detail that at this point there is no indication for admission to the hospital. It is understood, however, that if the symptoms persist or worsen the patient needs to return immediately for re-evaluation. ED course: Flu/strep neg, will treat with abx for acute tonsillitis, COVID test sent, will notify of results, told to self-quarantine until atleast results return.. 10/05 11:47 Order name: Flu; Complete Time: 12:40 iw 10/05 11:47 Order name: Strep; Complete Time: 12:40 10/05 12:11 Order name: Throat Culture [facility] 10/05 12:43 Order name: COVID-19 rn Administered Medications: 12:10 Drug: Tylenol 1000 mg Route: PO; bp 13:04 Follow up: Response: No adverse reaction; Temperature is decreased bp 12:10 Drug: Decadron 10 mg Route: IM; Site: affected area; bp 13:04 Follow up: Response: No adverse reaction; Temperature is decreased bp Disposition: 10/06/19 12:45 Discharged to Home. Impression: Acute tonsillitis. - Condition is Stable. - Discharge Instructions: Tonsillitis. - Prescriptions for Augmentin 875- 125 mg Oral Tablet - take 1 tablet by ORAL route every 12 hours for 10 days; 20 tablet. - Medication Reconciliation Form, Thank You Letter, Antibiotic Education, Prescription Opioid Use, Work release form form. - Follow up: Private Physician; When: As needed; Reason: Recheck today's complaints, Re-evaluation by your physician. - Problem is new. - Symptoms have improved. Signatures: Dispatcher [employer] Katelyn Paige RN RN Og Spicer MD MD rn [place], [place] RN RN bp Corrections: (The following items were deleted from the chart) 13:06 12:45 10/06/2019 12:45 Discharged to Home. Impression: Acute tonsillitis. Condition is bp Stable. Forms are Medication Reconciliation Form, Thank You Letter, Antibiotic Education, Prescription Opioid Use. Follow up: Private Physician; When: As needed; Reason: Recheck today's complaints, Re-evaluation by your physician. Problem is new. Symptoms have improved. rn
--- NOTE | 2019-10-06 12:45 | ER ---
Nurse's Notes [facility] Name: Zoie Myers Age: 28 yrs Sex: Female : 1990 Arrival Date: 10/06/2019 Time: 11:35 Bed 20 Private MD: Diagnosis: Acute tonsillitis Presentation: 10/05 11:41 Chief complaint: Patient states: woke up this morning at 4 am with fever chills and iw sore throat , took Nyquil at 4 am. Coronavirus screen: Patient denies a cough. Patient denies shortness of breath or difficulty breathing. Patient reports a measured and/or subjective temperature greater than 100.4F. Patient denies travel on a cruise ship or to a country the [facility] currently lists as an affected area. Patient denies contact with known and/or suspected case of COVID-19. Ebola Screen: Patient negative for fever greater than or equal to 101.5 degrees Fahrenheit, and additional compatible Ebola Virus Disease symptoms Patient denies exposure to infectious person. Patient denies travel to an Ebola-affected area in the 21 days before illness onset. No symptoms or risks identified at this time. Initial Sepsis Screen: Does the patient meet any 2 criteria? HR > 90 bpm. Does the patient have a suspected source of infection? No. Patient's initial sepsis screen is negative. Risk Assessment: Do you want to hurt yourself or someone else? Patient reports no desire to harm self or others. Onset of symptoms was October 06, 2019. 11:41 Method Of Arrival: Ambulatory iw 11:41 Acuity: JERILYN 4 iw Triage Assessment: 12:00 General: Appears in no apparent distress. comfortable, Behavior is cooperative, bp appropriate for age, anxious. Pain: Complains of pain in THROAT. EENT: Reports pain when swallowing. Neuro: No deficits noted. Cardiovascular: No deficits noted. Respiratory: No deficits noted. GI: No signs and/or symptoms were reported involving the gastrointestinal system. : No signs and/or symptoms were reported regarding the genitourinary system. Derm: No deficits noted. Musculoskeletal: No deficits noted. 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 - Social history:: Smoking status: Patient denies any tobacco usage or history of. - Family history:: not pertinent. - Hospitalizations: : No recent hospitalization is reported. Screenin:00 Abuse screen: Denies threats or abuse. Denies injuries from another. Nutritional bp screening: No deficits noted. Tuberculosis screening: No symptoms or risk factors identified. Fall Risk None identified. Assessment: 12:00 General: Appears in no apparent distress. comfortable, Behavior is calm, cooperative, bp appropriate for age, SEE TRIAGE NOTE. Respiratory: Airway is patent Respiratory effort is even, unlabored, Breath sounds are clear bilaterally. EENT: Throat is reddened. 12:50 Reassessment: COVID SWAB SENT. bp 13:05 Reassessment: PT D/C HOME AMBULATORY, DX WITH ACUTE TONSILITIS. bp 14:46 Reassessment: received [facility] # [id number]. iw Vital Signs: 11:41 BP 121 / 88; Pulse 121; Resp 18 S; Temp 101.4(TE); Pulse Ox 99% on R/A; Weight 89.81 iw kg; Height 5 ft. 3 in. (160.02 cm); Pain 5/10; 12:42 BP 124 / 85; Pulse 114; Resp 20; Pulse Ox 100% ; bp 12:50 BP 116 / 66; Pulse 107; Resp 20; Temp 101.1(O); Pulse Ox 99% ; lt1 11:41 Body Mass Index 35.07 (89.81 kg, 160.02 cm) iw ED Course: 11:35 Patient arrived in ED. as 11:47 Triage completed. iw 11:52 Richmond Funk, LAUREN is Primary Nurse. bp 11:52 Og Spicer MD is Attending Physician. rn 12:00 Arm band placed on. bp 12:00 Patient has correct armband on for positive identification. Bed in low position. Call bp light in reach. Side rails up X2. 13:05 No provider procedures requiring assistance completed. Patient did not have IV access bp during this emergency room visit. Administered Medications: 12:10 Drug: Tylenol 1000 mg Route: PO; bp 13:04 Follow up: Response: No adverse reaction; Temperature is decreased bp 12:10 Drug: Decadron 10 mg Route: IM; Site: affected area; bp 13:04 Follow up: Response: No adverse reaction; Temperature is decreased bp Outcome: 12:45 Discharge ordered by . rn 13:05 Discharged to home ambulatory. bp 13:05 Condition: stable 13:05 Discharge instructions given to patient, Instructed on discharge instructions, follow up and referral plans. medication usage, Demonstrated understanding of instructions, follow-up care, medications, Prescriptions given X 1. 13:06 Patient left the ED. bp Addendum: 10/08/2019 10:21 Addendum: Other Pt notified of negative COVID-19 swab results. Pt advised to continue d m5 to monitor symptoms, to remain in isolation until fever free for 72 hours without medication and to return to the ED if symptoms worsen. Signatures: Jennifer Gamez, RN RN Narda Heard Irene RN Og Lobo MD MD rn Peltier, Brian, RN RN bp Tran, [facility]
[2019-10-06 13:15] VITALS: BP 116/66; TEMP 101.1; O2SAT 99
== END 2019-10-06 13:06 | disposition home or self-care (01) ==
LOC: ER 11:33
DX: J03.90 Acute tonsillitis, unspecified (principal); Z20.828 Contact with and (suspected) exposure to other viral communicable diseases
CPT/HCPCS: 87070; 87081; 87804; 96372; 99283; J1100; U0001